=== PATIENT | female | born 1950 | race Caucasian/White ===

== ENCOUNTER → 2017-04-17 | Outpatient (CLI) | payer BC ==
--- NOTE | 2017-04-18 11:01 | MM ---
Reason for exam: screening (asymptomatic). Last mammogram was performed 1 year and 2 months ago. History: Patient is postmenopausal. Family history of breast cancer in mother at age 87. Physical Findings: A clinical breast exam by your physician is recommended on an annual basis and results should be correlated with mammographic findings. MG 3D Screening Mammo W/Cad Bilateral CC and MLO view(s) were taken. Prior study comparison: February 17, 2016, bilateral MG screening mammo w CAD. December 17, 2014, bilateral MG screening mammo w CAD. December 13, 2013, bilateral digital screening mammo w/CAD. Finding: There are typically benign vascular, round calcifications in both breasts. There is no discrete abnormality. ASSESSMENT: Benign, BI-RAD 2 RECOMMENDATION: Routine screening mammogram of both breasts in 1 year.
== END | disposition home or self-care (01) ==
LOC: RADMAMWWP 16:42
PROVIDERS: ATTEND Obstetrics & Gynecology
DX: Z12.31 Encounter for screening mammogram for malignant neoplasm of breast (principal)
CPT/HCPCS: 77063; G0202

== ENCOUNTER → 2018-07-04 | Outpatient (CLI) | payer BC ==
--- NOTE | 2018-07-06 09:15 | MM ---
Reason for exam: screening (asymptomatic). Last mammogram was performed 1 year and 3 months ago. History: Patient is postmenopausal. Family history of breast cancer in mother at age 87. Physical Findings: A clinical breast exam by your physician is recommended on an annual basis and results should be correlated with mammographic findings. MG 3D Screening Mammo W/Cad Bilateral CC and MLO view(s) were taken. Prior study comparison: April 17, 2017, bilateral MG 3d screening mammo w/cad. February 17, 2016, bilateral MG screening mammo w CAD. There are scattered fibroglandular densities. No significant changes when compared with prior studies. ASSESSMENT: Benign, BI-RAD 2 RECOMMENDATION: Routine screening mammogram of both breasts in 1 year.
== END | disposition home or self-care (01) ==
LOC: RADMAMWWP 08:06
PROVIDERS: ATTEND Internal Medicine
DX: Z12.31 Encounter for screening mammogram for malignant neoplasm of breast (principal); Z68.24 Body mass index [BMI] 24.0-24.9, adult
CPT/HCPCS: 77063; 77067

== ENCOUNTER → 2019-08-20 | Outpatient (CLI) | payer MEDICARE ==
--- NOTE | 2019-08-23 10:23 | MM ---
Reason for exam: screening (asymptomatic). Last mammogram was performed 1 year and 2 months ago. History: Patient is postmenopausal. Family history of breast cancer in mother at age 87. Physical Findings: A clinical breast exam by your physician is recommended on an annual basis and results should be correlated with mammographic findings. MG 3D Screening Mammo W/Cad Bilateral CC and MLO view(s) were taken. Prior study comparison: July 04, 2018, bilateral MG 3d screening mammo w/cad. April 17, 2017, bilateral MG 3d screening mammo w/cad. There are scattered fibroglandular densities. No significant changes when compared with prior studies. ASSESSMENT: Benign, BI-RAD 2 RECOMMENDATION: Routine screening mammogram of both breasts in 1 year.
== END | disposition home or self-care (01) ==
LOC: RADMAMWWP 13:51
PROVIDERS: ATTEND Obstetrics & Gynecology
DX: Z12.31 Encounter for screening mammogram for malignant neoplasm of breast (principal)
CPT/HCPCS: 77063; 77067

== ENCOUNTER 2019-11-11 09:19 | Day surgery (SDC) | payer MEDICARE ==
[2019-11-04 11:21] VITALS: BMI 24.3
[~2019-11-11 09:19] MED LIST: LACTATED RINGERS 1,000 ML IV SCH
[2019-11-11 09:58] VITALS: TEMP 97.3
[2019-11-11] MEDS ORDERED: LIDOCAINE 1% 20 ML VIAL (10MG/ML) FOR IV START INTRADERMA ONE (10:07)
[2019-11-11] MEDS ORDERED: PROPOFOL 10 MG/ML 20 ML VIAL IV ONE (10:33)
[2019-11-11] MEDS ORDERED: fentaNYL (PF) 50 MCG/ML 2 ML AMP ONE (10:33)
[2019-11-11] MEDS ORDERED: MIDAZOLAM 2 MG/2 ML VIAL ONE (10:33)
--- NOTE | 2019-11-11 11:19 | P.PCN ---
Date of Procedure: 11/11/19 Description of Procedure: BRIEF HISTORY: Patient is a 69-year-old female who presents for outpatient colonoscopy for a history of colon polyps. Last colonoscopy 5 years ago with findings of diverticulosis, polyps on prior colonoscopies. Patient does note change in bowel habits which she feels has been occurring since her cholecystectomy. PROCEDURE PERFORMED: Colonoscopy with polypectomy and biopsy. PREOPERATIVE DIAGNOSIS: Personal history of colon polyps, last colonoscopy 5 years ago. ESTIMATED BLOOD LOSS: Minimal. IV sedation per Anesthesia. PROCEDURE: After informed consent was obtained, the patient, was brought into the endoscopy unit. IV sedation was administered by Anesthesia under continuous monitoring. Digital rectal examination was normal. Initially the pediatric flexible video colonoscope was then inserted in the rectum, gradually advanced into the cecum without any difficulty. Careful examination was performed as the scope was gradually being withdrawn. Ileocecal valve and the appendiceal orifice were visualized and appeared normal. The terminal ileum was intubated and appeared normal with biopsies taken. Prep was excellent. Mucosa of the cecum, ascending colon, transverse colon, descending colon, sigmoid colon, and rectum appeared normal. Diminutive 2 mm ascending colon polyp removed with cold forcep polypectomy. Diminutive 1 mm rectal polyp removed with cold forcep polypectomy. Random biopsies taken of the right colon and left colon in the setting of altered bowel function. Numerous small and large mouth diverticula throughout the colon with large clustering in the sigmoid colon which was somewhat fixed. Retroflexion was performed in the rectum and no lesions were seen, low-grade internal hemorrhoids noted. The patient tolerated the procedure well. IMPRESSION: Moderate pandiverticulosis, with a somewhat fixed sigmoid colon. 2 diminutive polyps removed from the ascending colon and rectum with cold forceps. Random biopsies of the terminal ileum, right and left colon in the setting of altered bowel function. RECOMMENDATIONS: Findings of this examination were discussed with the patient in her family. Okay to resume diet. Okay to resume medications. Recommend repeat colonoscopy in 5 years for personal history of colon polyps.
[2019-11-11 11:25] VITALS: BP 127/79; PULSE 86; RESP 17
== END 2019-11-11 12:06 | disposition home or self-care (01) ==
LOC: ORWHC2ENDO 09:19
PROVIDERS: ATTEND Internal Medicine
DX: K63.5 Polyp of colon (principal); D12.2 Benign neoplasm of ascending colon; D12.3 Benign neoplasm of transverse colon; K62.1 Rectal polyp; K57.30 Diverticulosis of large intestine without perforation or abscess without bleeding; K64.8 Other hemorrhoids; I10 Essential (primary) hypertension; K21.9 Gastro-esophageal reflux disease without esophagitis; Z86.010 Personal history of colon polyps; Z90.49 Acquired absence of other specified parts of digestive tract; Z79.899 Other long term (current) drug therapy
CPT/HCPCS: 88305; 45380; J2250; J3010; J2704

== ENCOUNTER → 2020-01-16 | Outpatient (CLI) | payer MEDICARE ==
--- NOTE | 2020-01-16 11:26 | ECHOF ---
Referral Reason:R00.2 Palpitations R94.31 abn ekg MEASUREMENTS -------- HEIGHT: 175.3 cm WEIGHT: 77.1 kg BP: RVIDd: 3.7 cm (< 3.3) IVSd: 1.3 cm (0.6 - 1.1) LVIDd: 4.0 cm (3.9 - 5.3) LVPWd: 1.2 cm (0.6 - 1.1) IVSs: 1.9 cm LVIDs: 2.0 cm LVPWs: 1.5 cm LA Diam: 2.9 cm (2.7 - 3.8) LAESV Index (A-L): 12.68 ml/m Ao Diam: 3.1 cm (2.0 - 3.7) AV Cusp: 2.0 cm (1.5 - 2.6) MV EXCURSION: 17.007 mm (> 18.000) MV EF SLOPE: 22 mm/s (70 - 150) EPSS: 0.2 cm MV E Carlton: 0.73 m/s MV DecT: 286 ms MV A Carlton: 0.91 m/s MV E/A Ratio: 0.81 AR PHT: 1060 ms RAP: 5.00 mmHg RVSP: 29.01 mmHg FINDINGS -------- Sinus rhythm. This was a technically good study. The left ventricular size is normal. There is mild concentric left ventricular hypertrophy. Overa ll left ventricular systolic function is normal with, an EF between 60 - 65 %. The right ventricle is mild to moderately enlarged. Normal LA size by volume 22+/-6 ml/m2. The right atrium is normal in size. Interatrial and interventricular septum intact. Aortic valve is trileaflet and is mildly thickened. The mitral valve leaflets are mildly thickened. Mild mitral annular calcification present. Mild t hickening of the anterior mitral valve leaflet. There is mild thickening of the posterior mitral va lve leaflet. Mild tricuspid regurgitation present. Right ventricular systolic pressure is normal at < 35 mmHg. There is no pulmonic regurgitation present. The aortic root size is normal. Normal inferior vena cava with normal inspiratory collapse consistent with estimated right atrial pre ssure of 5 mmHg. There is no pericardial effusion. CONCLUSIONS -------- 1. Sinus rhythm. 2. This was a technically good study. 3. The left ventricular size is normal. 4. There is mild concentric left ventricular hypertrophy. 5. Overall left ventricular systolic function is normal with, an EF between 60 - 65 %. 6. The right ventricle is mild to moderately enlarged. 7. Normal LA size by volume 22+/-6 ml/m2. 8. The right atrium is normal in size. 9. Interatrial and interventricular septum intact. 10. Aortic valve is trileaflet and is mildly thickened. 11. The mitral valve leaflets are mildly thickened. 12. Mild mitral annular calcification present. 13. Mild thickening of the anterior mitral valve leaflet. 14. There is mild thickening of the posterior mitral valve leaflet. 15. Mild tricuspid regurgitation present. 16. Right ventricular systolic pressure is normal at < 35 mmHg. 17. There is no pulmonic regurgitation present. 18. The aortic root size is normal. 19. Normal inferior vena cava with normal inspiratory collapse consistent with estimated right atrial pressure of 5 mmHg. 20. There is no pericardial effusion. [employer] DESIGNER: Zahida Garcia RDCS
--- NOTE | 2020-01-16 12:29 | ECHOS ---
STRESS ECHOCARDIOGRAM INDICATIONS: Hypertension. MEDICATIONS: Amitriptyline, atorvastatin, Ramipril. BASELINE HEART RATE: 101 BASELINE BLOOD PRESSURE: 160/80 MAXIMUM HEART RATE: 157 MAXIMUM BLOOD PRESSURE: 181/83 85% MPHR: 128 100% MPHR: 151 METS: 11.1 MAXIMUM STAGE REACHED: IV TOTAL EXERCISE TIME: 9:33 CLINICAL INFORMATION: Baseline EKG shows sinus rhythm, normal axis, normal intervals. Patient exercised on Dionisio protocol for a total of 9.5 minutes achieving 11 METS, 85% of predicted maximal heart rate without chest pain or diagnostic ST-segment depression. Baseline echo shows normal left ventricular size, wall motion, systolic function. Postexercise, there is normal hyperdynamic response of all segments of myocardium noted. CONCLUSION: 1. Good exercise tolerance. 2. Negative stress test by EKG criteria. 3. Negative stress echo. DINESH / JOVANAN: [id number] /
--- NOTE | 2020-02-22 09:13 | EM ---
EVENT MONITOR Patient was monitored between January 15 and February 10, 2020. The rhythm strip revealed sinus mechanism with single PVCs. There was one episode of paroxysmal atrial tachycardia noted on January 25 of 8 complexes. No pauses were noted. DINESH / IJN: [id number] /
== END | disposition home or self-care (01) ==
LOC: RADNMMAIN 09:06
PROVIDERS: ATTEND Internal Medicine
DX: I08.1 Rheumatic disorders of both mitral and tricuspid valves (principal); R00.2 Palpitations
CPT/HCPCS: 93270; 93306; 93351

== ENCOUNTER → 2020-08-21 | Outpatient (CLI) | payer MEDICARE ==
--- NOTE | 2020-08-24 09:35 | MM ---
Reason for exam: screening (asymptomatic). Last mammogram was performed 1 year ago. History: Patient is postmenopausal. Family history of breast cancer in mother at age 87. Physical Findings: A clinical breast exam by your physician is recommended on an annual basis and results should be correlated with mammographic findings. MG 3D Screening Mammo W/Cad Bilateral CC and MLO view(s) were taken. Prior study comparison: August 20, 2019, bilateral MG 3d screening mammo w/cad. July 04, 2018, bilateral MG 3d screening mammo w/cad. The breast tissue is heterogeneously dense. This may lower the sensitivity of mammography. Benign appearing bilateral calcifications. No significant changes when compared with prior studies. ASSESSMENT: Benign, BI-RAD 2 RECOMMENDATION: Routine screening mammogram of both breasts in 1 year.
== END | disposition home or self-care (01) ==
LOC: RADMAMWWP 10:55
PROVIDERS: ATTEND Obstetrics & Gynecology
DX: Z12.31 Encounter for screening mammogram for malignant neoplasm of breast (principal)
CPT/HCPCS: 77063; 77067

== ENCOUNTER → 2020-11-23 | Outpatient (CLI) | payer MEDICARE ==
--- NOTE | 2020-11-23 18:02 | US ---
EXAMINATION TYPE: US transvaginal DATE OF EXAM: 11/23/2020 COMPARISON: NONE CLINICAL HISTORY: 70-year-old female N95.0 POST MENOPAUSAL BLEEDING. TECHNIQUE: Transvaginal exam only per ordering physician. Date of LMP: 20 years ago FINDINGS: EXAM MEASUREMENTS: Uterus: 6.2 x 2.6 x 3.6 cm Endometrial Stripe: 3.7 mm Right Ovary: not seen Left Ovary: not seen 1. Uterus: anteverted 2. Endometrium: wnl 3. Right Ovary: not seen due to overlying bowel 4. Left Ovary: not seen due to overlying bowel 5. Bilateral Adnexa: wnl 6. Posterior cul-de-sac: wnl IMPRESSION: Thin endometrial stripe measuring 3.7 mm. Neither ovary could be visualized.
== END | disposition home or self-care (01) ==
LOC: RADUSWWP 16:05
PROVIDERS: ATTEND Obstetrics & Gynecology
DX: R93.89 Abnormal findings on diagnostic imaging of other specified body structures (principal); N95.0 Postmenopausal bleeding
CPT/HCPCS: 76830

== ENCOUNTER → 2021-08-25 | Outpatient (CLI) | payer MEDICARE ==
--- NOTE | 2021-08-26 07:46 | BD ---
EXAMINATION TYPE: Axial Bone Density DATE OF EXAM: 08/25/2021 COMPARISON: Prior DEXA bone scan 2015 CLINICAL HISTORY: Postmenopausal female Height: 5 FT 8 3/4 IN Weight: 172 FRAX RISK QUESTIONS: Alcohol (3 or more units per day): NO Family History (Parent hip fracture): YES Glucocorticoids (More than 3mos): NO (Ex: prednisone, prednisolone, methylprednisolone, dexamethasone, and hydrocortisone). History of Fracture in Adulthood: NO Secondary Osteoporosis: 1. Type 1 Diabetes: NO 2. Hyperthyroidism: NO 3. Menopause before 45: NO 4. Malnutrition: NO 5. Chronic liver disease: NO Rheumatoid Arthritis: NO Current Tobacco Use: NO RISK FACTORS HISTORY OF: Surgery to Spine/Hip(right/left)/Wrist (right/left): NO Family History of Osteoporosis: NO Active: YES Diet low in dairy products/other sources of calcium: NO Postmenopausal woman: EAARLY 50'S Take estrogen and/or progesterone medications: NO Lost more than 2 inches in height since high school: NO MEDICATIONS: Additional Medications: BLOOD PRESSURE MEDS, ZOCOR, H2O PILL Additional History: EXAM MEASUREMENTS: Bone mineral densitometry was performed using the [facility]. Bone mineral density as measured about the Lumbar spine is: ----- L1-L4(G/cm2): 1.324 T Score Values are as follows: ----- L2: 2.2 ----- L3: 0.5 ----- L4: 1.4 ----- L1-L4: 1.2 Bone mineral density has: INCREASED 3.9 % since study of: 2015 Bone mineral density about the R hip (g/cm2): 0.956 Bone mineral density about the L hip (g/cm2): 0.933 T Score values are as follows: -----R Neck: -0.6 -----L Neck: -0.8 -----R Total: -0.8 -----L Total: -1.4 Bone mineral density has: DECREASED -6.7 % since study of: 2016 IMPRESSION: Normal (Values between +1 and -1 indicate normal bone mass). Consider repeating this study in 5 year s or sooner if there is some new clinical indication. NOTE: T-SCORE=SD OF THE YOUNG ADULT MEAN.
--- NOTE | 2021-08-26 15:05 | MM ---
Reason for exam: screening (asymptomatic). Last mammogram was performed 1 year ago. History: Patient is postmenopausal. Family history of breast cancer in mother at age 87. Physical Findings: A clinical breast exam by your physician is recommended on an annual basis and results should be correlated with mammographic findings. MG 3D Screening Mammo W/Cad Bilateral CC and MLO view(s) were taken. Prior study comparison: August 21, 2020, bilateral MG 3d screening mammo w/cad. August 20, 2019, bilateral MG 3d screening mammo w/cad. July 04, 2018, bilateral MG 3d screening mammo w/cad. The breast tissue is heterogeneously dense. This may lower the sensitivity of mammography. There are benign appearing vascular calcifications bilaterally. There is no discrete abnormality. ASSESSMENT: Benign, BI-RAD 2 RECOMMENDATION: Routine screening mammogram of both breasts in 1 year.
== END | disposition home or self-care (01) ==
LOC: RADBDWWP 14:59
PROVIDERS: ATTEND Obstetrics & Gynecology
DX: Z12.31 Encounter for screening mammogram for malignant neoplasm of breast (principal); Z80.3 Family history of malignant neoplasm of breast; M85.852 Other specified disorders of bone density and structure, left thigh; Z78.0 Asymptomatic menopausal state
CPT/HCPCS: 77063; 77067; 77080

== ENCOUNTER → 2022-08-31 | Outpatient (CLI) | payer MEDICARE ==
--- NOTE | 2022-09-01 08:54 | MM ---
Reason for Exam: Screening (asymptomatic). Last screening mammogram was performed 12 month(s) ago. Patient History: Menarche at age 13. First Full-Term at age 17. Postmenopausal. Mother had breast cancer, age 87. Risk Values: Peace 5 year model risk: 3.3%. NCI Lifetime model risk: 8.4%. Prior Study Comparison: 08/20/2019 Bilateral Screening Mammogram, [facility]. 08/21/2020 Bilateral Screening Mammogram, [facility]. 08/25/2021 Bilateral Screening Mammogram, [facility]. Tissue Density: The breast tissue is heterogeneously dense. This may lower the sensitivity of mammography. Findings: Analyzed By CAD. Benign-appearing vascular calcifications bilaterally is redemonstrated. Benign Bilateral axillary lymph nodes are again seen. There is no suspicious group of microcalcifications or new suspicious mass in either breast. Overall Assessment: Benign, BI-RAD 2 Management: Screening Mammogram of both breasts in 1 year. A clinical breast exam by your physician is recommended on an annual basis and results should be correlated with mammographic findings. Electronically signed and approved by: Steve Constantino M.D.
--- NOTE | 2022-09-01 08:54 | MM ---
Reason for Exam: Screening (asymptomatic). Last screening mammogram was performed 12 month(s) ago. Patient History: Menarche at age 13. First Full-Term at age 17. Postmenopausal. Mother had breast cancer, age 87. Risk Values: Peace 5 year model risk: 3.3%. NCI Lifetime model risk: 8.4%. Prior Study Comparison: 08/20/2019 Bilateral Screening Mammogram, [facility]. 08/21/2020 Bilateral Screening Mammogram, [facility]. 08/25/2021 Bilateral Screening Mammogram, [facility]. Tissue Density: The breast tissue is heterogeneously dense. This may lower the sensitivity of mammography. Findings: Analyzed By CAD. Benign-appearing vascular calcifications bilaterally is redemonstrated. Benign Bilateral axillary lymph nodes are again seen. There is no suspicious group of microcalcifications or new suspicious mass in either breast. Overall Assessment: Benign, BI-RAD 2 Management: Screening Mammogram of both breasts in 1 year. A clinical breast exam by your physician is recommended on an annual basis and results should be correlated with mammographic findings. Electronically signed and approved by: Steve Constantino M.D.
== END | disposition home or self-care (01) ==
LOC: RADMAMWWP 09:41
PROVIDERS: ATTEND Obstetrics & Gynecology
DX: Z12.31 Encounter for screening mammogram for malignant neoplasm of breast (principal); Z78.0 Asymptomatic menopausal state; Z80.3 Family history of malignant neoplasm of breast
CPT/HCPCS: 77063; 77067

== ENCOUNTER → 2023-02-27 | Outpatient (CLI) | payer MEDICARE ==
--- NOTE | 2023-02-28 21:35 | NM ---
EXAMINATION TYPE: NM bone scan whole body DATE OF EXAM: 02/27/2023 COMPARISON: Pelvic radiograph 02/21/2023, lumbosacral spine radiograph 02/21/2023 HISTORY: M47.816 Delayed whole-body scanning was performed following the injection of 22 mCi Tc 99m MDP. Images acqui red 3 hours post injection. FINDINGS: Increased radiotracer uptake within the L2 vertebral body corresponding to suspected compression frac ture. There is focal uptake demonstrated within the right aspect of the T12 . Additionally there is i ncreased uptake within the bilateral sacral regions and transversely across the sacrum consistent wit h the Honda sign which is associated with sacral insufficiency fracture. Increased radiotracer uptake within the bilateral shoulders, elbows, and sternoclavicular region cons istent with degenerative changes. Physiologic radiotracer uptake is demonstrated within the kidneys a nd urinary bladder. IMPRESSION: 1. Focal radiotracer uptake within the L2 vertebral body consistent with acute/subacute compression fracture on plain film. 2. Focal radiotracer uptake within the right aspect of the T12 vertebral body which may represent a compression fracture or degenerative change. This could be further evaluated with plain film. 3. Honda sign involving the sacrum consistent with sacral insufficiency fractures.
== END | disposition home or self-care (01) ==
LOC: RADNMMAIN 10:27
PROVIDERS: ATTEND Physical Medicine & Rehabilitation
DX: S32.020A Wedge compression fracture of second lumbar vertebra, initial encounter for closed fracture (principal); M47.816 Spondylosis without myelopathy or radiculopathy, lumbar region
CPT/HCPCS: 78306; A9503

== ENCOUNTER → 2023-09-18 | Outpatient (CLI) | payer MEDICARE ==
--- NOTE | 2023-09-19 18:43 | MM ---
Reason for Exam: Screening (asymptomatic). Last mammogram was performed 1 year(s) and 1 month(s) ago. Patient History: Menarche at age 13. First Full-Term at age 17. Postmenopausal. Mother had breast cancer, age 87. Risk Values: Peace 5 year model risk: 3.3%. NCI Lifetime model risk: 7.9%. Prior Study Comparison: 08/21/2020 Bilateral Screening Mammogram, [facility]. 08/25/2021 Bilateral Screening Mammogram, [facility]. 08/31/2022 Bilateral MG 3D screening mammo w/cad, [facility]. Tissue Density: There are scattered fibroglandular densities. Findings: Analyzed By CAD. Benign bilateral vascular calcifications. There is new nodular asymmetric density superiorly on the right MLO view anterior to middle depth for which further evaluation is recommended. Otherwise, no significant change. Overall Assessment: Incomplete: need additional imaging evaluation, BI-RAD 0 Management: Special View Mammogram of the right breast. Diagnostic Breast Ultrasound of the right breast. Additional views to include spot 3-D MLO and 3-D lateral views. Targeted right breast ultrasound of any persistent abnormality. [facility] will attempt to contact patient to return for supplemental views and ultrasound if indicated. Electronically signed and approved by: Thanh Vasquez M.D. Radiologist
== END | disposition home or self-care (01) ==
LOC: RADMAMWWP 16:09
PROVIDERS: ATTEND Obstetrics & Gynecology
DX: Z12.31 Encounter for screening mammogram for malignant neoplasm of breast (principal); Z78.0 Asymptomatic menopausal state; Z80.3 Family history of malignant neoplasm of breast
CPT/HCPCS: 77063; 77067

== ENCOUNTER → 2023-09-28 | Outpatient (CLI) | payer MEDICARE ==
--- NOTE | 2023-09-28 08:40 | MM ---
Reason for Exam: Additional evaluation requested from abnormal screening. Last screening mammogram was performed less than 1 month ago. Patient History: Menarche at age 13. First Full-Term at age 17. Postmenopausal. Mother had breast cancer, age 87. Risk Values: Peace 5 year model risk: 3.3%. NCI Lifetime model risk: 7.9%. Tissue Density: Right: The breast tissue is heterogeneously dense. This may lower the sensitivity of mammography. Findings: Analyzed By CAD. The nodular density appears to be partially visualized on compression view. This is approximately 4 mm in size 6.5 cm from the nipple in the middle portion 12:00 position. Additional workup with ultrasound is recommended. Overall Assessment: Incomplete: need additional imaging evaluation, BI-RAD 0 Management: Diagnostic Breast Ultrasound of the right breast. A negative mammogram report should not preclude additional follow up of suspicious palpable abnormalities. Patient should continue monthly self breast exam. A clinical breast exam by your physician is recommended on an annual basis and results should be correlated with mammographic findings. Electronically signed and approved by: Hasmukh Ray D.O. Radiologis
--- NOTE | 2023-09-28 10:10 | USB ---
Reason for Exam: Additional evaluation requested from abnormal screening. Patient History: Menarche at age 13. First Full-Term at age 17. Postmenopausal. Mother had breast cancer, age 87. Risk Values: Peace 5 year model risk: 3.3%. NCI Lifetime model risk: 7.9%. Technique: Method: Targeted. Prior Study Comparison: 08/22/1998 Screening Mammogram, Unknown. 08/25/2021 Bilateral Screening Mammogram, [facility]. 08/31/2022 Bilateral MG 3D screening mammo w/cad, [facility]. 09/18/2023 Bilateral MG 3D screening mammo w/cad, [facility]. Findings: The upper section of the breast of the right breast, the axilla of the right breast and the retroareolar of the right breast were scanned. At the 10:00 position 6 cm from the nipple there is a cyst measuring 0.5 x 0.6 x 0.6 cm. It is unclear if this correlates with the mammogram. Follow-up mammogram and ultrasound 6 recommend reevaluation. Overall Assessment: Probably benign, BI-RAD 3 Management: Diagnostic Mammogram of the right breast in 6 months. Diagnostic Breast Ultrasound of the right breast in 6 months. A clinical breast exam by your physician is recommended on an annual basis and results should be correlated with mammographic findings. This exam should not preclude additional follow-up of suspicious palpable abnormalities. Results were given to the patient verbally at the time of exam. Electronically signed and approved by: Hasmukh Ray D.O. Radiologis
== END | disposition home or self-care (01) ==
LOC: RADMAMWWP 08:17
PROVIDERS: ATTEND Obstetrics & Gynecology
DX: R92.331 Mammographic heterogeneous density, right breast (principal); Z78.0 Asymptomatic menopausal state; Z80.3 Family history of malignant neoplasm of breast
CPT/HCPCS: 77065; 76642; G0279; 77061

== ENCOUNTER 2023-10-16 11:35 | Day surgery (SDC) | payer MEDICARE ==
[2023-10-16] MEDS ORDERED: SODIUM CHLORIDE 0.9% 500 ML 500 ML IV ONE (12:17)
[2023-10-16 12:24] VITALS: RESP 18; TEMP 98.2
[2023-10-16] MEDS ORDERED: fentaNYL (PF) 50 MCG/ML 2 ML AMP ONE (12:48)
[2023-10-16] MEDS ORDERED: MIDAZOLAM 2 MG/2 ML VIAL IVP ONE ×2 (12:57→13:04)
[2023-10-16] MEDS ORDERED: fentaNYL (PF) 50 MCG/ML 2 ML AMP IVP ONE (13:00)
[2023-10-16 14:22] VITALS: PULSE 84
[2023-10-16 14:47] VITALS: BP 130/65
--- NOTE | 2023-10-16 15:06 | P.TEE ---
Date of Procedure: 10/16/23 Description of Procedure(s): Procedure performed: 1. Transesophageal Echocardiogram with color flow doppler, pulsed wave doppler and continuous wave doppler 2. Moderate conscious sedation. Sedation time 28 mins. 3. Bubble Study Indications: Suspected severe MR and Aortic regurgitation Consent: I have discussed the risks, benefits and alternative therapies for the above-mentioned procedure. The patient has indicated understanding and acceptance of the risks of the procedure. Signed consent was obtained and was placed in the paper chart. Procedural Steps: Timeout was performed in usual fashion. Patient's heart rate, blood pressure, oxygen saturation and ECG were monitored. Benzocaine was sprayed liberally in the back of the throat. Bite block was placed between the jaw. 3 mg of Versed and 75 mcg of Fentanyl were administered intravenously. After achiev ing appropriate moderate conscious sedation, BRUNO probe was advanced without difficulty and without any immediate complications to the esophagus. BRUNO study was performed with color flow doppler, pulsed wave doppler and continuous wave doppler. Agitated saline bubbles were injected to assess for any intra-atrial shunt. The probe was then removed. Patient tolerated the procedure well. Patient was transferred to the post procedure area in stable and satisfactory condition. Throughout the procedure patient's heart rate, blood pressure, oxygen saturation and ECG were monitored. Total sedation time 28 mins. Complications: none FINDINGS Left Atrium: Normal Left atrial size. No evidence of mass or thrombus seen. Antegrade systolic showing pulmonary vein. Left Atrial Appendage: No evidence of thrombus or mass seen in RAQUEL Inter atrial septum: Small PFO with [id number] shunt on bubble study Left Ventricle: Normal global LV size and systolic function Right Atrium: Normal overall RV size Right Ventricle: Normal global RV size and systolic function Aortic Valve: Trileaflet. Mild thickening of leaflet tips. Mild central regurgitation. PISA radius 0.5 cm with aliasing velocity of 38 cm/s, peak AR velocity 375 cm/sec. Orific area 0.2 cm2, which puts it at mild grade. 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 Mild prolapse of anterior and posterior mitral leaflet. MR Vmax 5 82 cm/s, MR VTI 65 cm, alisaing velocity 38 cm/s, PISA 0.5 cm. EROA 0.1 cm. regurg volume 10 cm. No systolic reversal in pulmonic vein. Mild to moderate aortic regurgitation. MR is early systolic last less than 50% of systole. Pulmonic Valve: Not well visualized. Tricuspid Valve: Structurally normal. Ascending aorta, Aortic root and Aortic arch: Ascending aorta measuring at 3.5 cm Descending aorta: Mild intimal thickening. 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 Mild early systolic systolic MR. Primary MR due to mild prolapse of anterior and posterior mitral leaflet. No reversal of systolic flow in pulmonic vein PFO with [id number] shunting on bubble study
== END 2023-10-16 14:41 | disposition home or self-care (01) ==
LOC: CATHCVL 11:35
PROVIDERS: ATTEND Student in an Organized Health Care Education/Training Program
DX: I08.0 Rheumatic disorders of both mitral and aortic valves (principal); I10 Essential (primary) hypertension; E78.5 Hyperlipidemia, unspecified; Z79.899 Other long term (current) drug therapy
CPT/HCPCS: 93312; 93320; 93325; 99152; 99153; J2250; J3010

== ENCOUNTER → 2024-04-02 | Outpatient (CLI) | payer MEDICARE ==
--- NOTE | 2024-04-02 14:17 | MM ---
Reason for Exam: Follow-up at short interval from prior study. Last screening mammogram was performed 6 month(s) ago. Patient History: Menarche at age 13. First Full-Term at age 17. Postmenopausal. Mother had breast cancer, age 87. Risk Values: Peace 5 year model risk: 3.3%. NCI Lifetime model risk: 7.9%. Prior Study Comparison: 08/31/2022 Bilateral MG 3D screening mammo w/cad, [facility]. 09/18/2023 Bilateral MG 3D screening mammo w/cad, [facility]. 09/28/2023 Right MG 3D work up w/cad RT, [facility]. Tissue Density: Right: The breasts are heterogeneously dense, which may obscure small masses. Findings: Analyzed By CAD. Pattern appears stable. Benign vascular calcifications present. Density within the upper right medial lateral oblique view is persistent. This measures 0.4 cm is located 7 cm from the nipple upper middle breast approximately 10:00 position. Overall Assessment: Incomplete: need additional imaging evaluation, BI-RAD 0 Management: Diagnostic Breast Ultrasound of the right breast. A negative mammogram report should not preclude additional follow up of suspicious palpable abnormalities. Patient should continue monthly self breast exam. A clinical breast exam by your physician is recommended on an annual basis and results should be correlated with mammographic findings. Note on Peace scores and lifetime risk: 1. A Peace score greater than 3% is considered moderate risk. If this is the case, consider specialist referral to assess eligibility for a risk reducing agent. 2. If overall lifetime risk for the development of breast cancer is 20% or higher, the patient may qualify for future screening with alternating mammogram and breast MRI. Electronically signed and approved by: Hasmukh Ray D.O. Radiologis
--- NOTE | 2024-04-02 15:09 | USB ---
Reason for Exam: Follow-up at short interval from prior study. Patient History: Menarche at age 13. First Full-Term at age 17. Postmenopausal. Mother had breast cancer, age 87. Risk Values: Peace 5 year model risk: 3.3%. NCI Lifetime model risk: 7.9%. Technique: Method: Targeted. Prior Study Comparison: 08/31/2022 Bilateral MG 3D screening mammo w/cad, [facility]. 09/18/2023 Bilateral MG 3D screening mammo w/cad, [facility]. 09/28/2023 Right MG 3D work up w/cad RT, [facility]. Findings: The upper outer quadrant of the right breast, the axilla of the right breast and the retroareolar of the right breast were scanned. There is a hypoechoic colic area measuring 0.6 x 0.7 x 0.6 cm this appears to be adjacent to a duct is located 10:00 position 6 cm in the nipple. This would correlate with the mammographic findings. This is compared to prior ultrasound of 09/28/2023. Finding appears stable. Overall Assessment: Probably benign, BI-RAD 3 Management: Diagnostic Mammogram of both breasts in 6 months. A clinical breast exam by your physician is recommended on an annual basis and results should be correlated with mammographic findings. This exam should not preclude additional follow-up of suspicious palpable abnormalities. Results were given to the patient verbally at the time of exam. Electronically signed and approved by: Hasmukh Ray D.O. Radiologis
== END | disposition home or self-care (01) ==
LOC: RADMAMWWP 13:40
PROVIDERS: ATTEND Student in an Organized Health Care Education/Training Program
DX: R92.331 Mammographic heterogeneous density, right breast (principal); Z78.0 Asymptomatic menopausal state; Z80.3 Family history of malignant neoplasm of breast
CPT/HCPCS: 77065; 76642; G0279; 77061

== ENCOUNTER → 2024-07-04 | Outpatient (CLI) | payer MEDICARE ==
--- NOTE | 2024-07-23 10:10 | MR ---
EXAMINATION TYPE: MR lumbar spine wo con DATE OF EXAM: 07/04/2024 COMPARISON: 02/21/2023 plain film HISTORY: Low back pain left lower extremity radiculopathy CONTRAST: 0 mL intravenous Gadavist. TECHNIQUE: Multiplanar, multisequence images of the lumbar spine were acquired. FINDINGS: L5-S1: There is loss of disc height at this level. No focal disc herniation is evident. No spinal can al stenosis is present. Neural foramen appear patent. L4-L5: There is a grade 1 spondylolisthesis with disc uncovering. Facet hypertrophy is present. Some mild canal narrowing may be present. Neural foramen are patent. L3-L4: Broad-based disc bulge is moderate anterior thecal sac compression. No spinal canal stenosis p resent. Facet hypertrophy is posterior lateral thecal sac compression. Neural foramen are patent. L2-L3: No focal disc herniation or significant disc bulge. No AP spinal canal stenosis. Facet hypertr ophy is posterior lateral thecal sac compression. Neural foramen are patent. Some mild narrowing may be present on the left. No nerve root impingement is identified. L1-L2: Broad-based disc bulge is present. Facet hypertrophy and ligamentum flavum laxity have detective ior lateral thecal sac compression. No AP spinal canal stenosis present. Some mild left foraminal violeta rowing is present. T12-L1: No significant disc bulge or disc herniation. No spinal canal stenosis. Some facet hypertrop hy is present. No neural foraminal narrowing evident. IMPRESSION: 1. Grade 1 spondylolisthesis L4 anterior to L5. Disc uncovering and facet hypertrophy contributing to some mild spinal canal narrowing. 2. Some broadbase disc bulge present at L3-4 and L1-2 without spinal canal stenosis. 3. Some mild foraminal narrowing appears to be present on the left L1-2. Correlate with radicular sym ptoms.
== END | disposition home or self-care (01) ==
LOC: RADMRIMAIN 08:40
PROVIDERS: ATTEND Orthopaedic Surgery Orthopaedic Surgery of the Spine
DX: M51.36 Other intervertebral disc degeneration, lumbar region (principal); M48.062 Spinal stenosis, lumbar region with neurogenic claudication; M43.16 Spondylolisthesis, lumbar region; M48.061 Spinal stenosis, lumbar region without neurogenic claudication
CPT/HCPCS: 72148

== ENCOUNTER → 2024-12-09 | Outpatient (CLI) | payer MEDICARE | END | disposition home or self-care (01) | LOC: LABPAT 13:36 | PROVIDERS: ATTEND Orthopaedic Surgery | DX: Z01.812 Encounter for preprocedural laboratory examination (principal); M16.12 Unilateral primary osteoarthritis, left hip; Z22.322 Carrier or suspected carrier of Methicillin resistant Staphylococcus aureus | CPT/HCPCS: 86850; 86900; 86901; 87070 ==

== ENCOUNTER 2024-12-18 11:04 | Day surgery (SDC) | payer MEDICARE ==
--- NOTE | 2024-12-16 10:20 | P.HPOR ---
History of Present Illness H&P Date: 12/16/24 Chief Complaint: Left hip pain The patient is a 74-year-old female who presents with progressive left hip pain for the past 2 years. She is having pain with weightbearing activities in the groin and thigh. She also notes stiffness. She does use a cane. She has tried medications without much relief. She notes daily pain that limits her normal function and activities. Review of Systems Per HPI Past Medical History Past Medical History: GERD/Reflux, Hyperlipidemia, Hypertension Additional Past Medical History / Comment(s): HX OF COLON POLYPS, IBS WITH DIARRHEA/CONSTIPATION , PROLAPSED BLADDER. History of Any Multi-Drug Resistant Organisms: None Reported Past Surgical History: Back Surgery, Cholecystectomy Additional Past Surgical History / Comment(s): lumbar spinal fusion 2023 Past Anesthesia/Blood Transfusion Reactions: No Reported Reaction Smoking Status: Never smoker - Past Family History Mother Family Medical History: Cancer Additional Family Medical History / Comment(s): BREAST CANCER Father Family Medical History: Deep Vein Thrombosis (DVT) Medications and Allergies Home Medications Medication Instructions Recorded Confirmed Type Atorvastatin [Lipitor] 20 mg PO HS 11/04/19 12/11/24 History Cholecalciferol [Vitamin D3 (25 1,000 unit PO DAILY 11/04/19 12/11/24 History Mcg = 1000 Iu)] Famotidine [Pepcid AC] 10 mg PO DIRECTED PRN 11/04/19 12/11/24 History L.acidoph,Paracasei, B.lactis 1 each PO DAILY 11/04/19 12/11/24 History [Probiotic] Choteau-3 Fatty Acids [Choteau-3] 1 dose PO DAILY 11/04/19 12/11/24 History Super Antwan (Calcium Supplement) 1 tab PO DAILY 11/04/19 12/11/24 History hydroCHLOROthiazide 25 mg PO DAILY 10/13/23 12/11/24 History Gabapentin 300 mg PO HS 12/11/24 12/11/24 History Ibuprofen 600 mg PO Q8H PRN 12/11/24 12/11/24 History Valsartan 160 mg PO BID 12/11/24 12/11/24 History amLODIPine [Norvasc] 2.5 mg PO DAILY 12/11/24 12/11/24 History Allergies Allergy/AdvReac Type Severity Reaction Status Date / Time corn Allergy Unknown POSITIVE Verified 12/11/24 15:14 ALLERGY TESTING Physical Examination - Hip left Gait: antalgic Tenderness with palpation: anterior Pain with motion: internal rotation and hip flexion ROM: flexion: 70 degrees ROM: internal rotation: 5 degrees ROM: external rotation: 40 degrees Crepitus with motion: Yes Strength: extension: 5/5 Strength: flexion: 5/5 Strength: abduction: 5/5 Tests: impingement tests: positive Results The patient is a well-developed well-nourished female approximately 5 foot 9, 171 pounds of mesomorphic habitus. HEENT exam is nonfocal, neck is supple. She has painful passive motion of her left hip. She has an antalgic gait pattern. Her distal neurovascular appears intact in the left lower extremity. - Diagnostic results Hip x-ray: image reviewed (X-rays of the left hip obtained the office show severe osteoarthrosis with [id number] changes along with subchondral sclerosis.) Assessment and Plan Assessment: Left hip severe osteoarthrosis History of lumbar fusion Plan: I talked to the patient at length regarding her condition along with treatment options. At this point she is quite symptomatic having pain and mechanical symptoms related to her left hip osteoarthrosis despite previous conservative measures. After a thorough discussion she opts to proceed with surgery. We will plan to proceed with left total hip arthroplasty utilizing an anterior approach. Risks and benefits were discussed at length in layman's terms. We will institute DVT prophylaxis postoperatively.
[~2024-12-18 11:04] MED LIST changes: +HYDROmorphone 0.5 MG/0.5 ML SYRINGE IVP PRN; -LACTATED RINGERS 1,000 ML IV SCH; +TRANEXAMIC 1,000 MG/100ML-NACL 1,000 MG in SALINE 1 100ML.BAG IVPB PRN; +fentaNYL (PF) 50 MCG/ML 2 ML AMP IV PRN
[2024-12-18] MEDS: IV FLUID CONTINUATION 1,000 ML IV ONE ×2 (12:00→14:04)
[2024-12-18] MEDS: LACTATED RINGERS 1,000 ML IV SCH (12:07)
[2024-12-18] MEDS: ACETAMINOPHEN TAB 500 MG TAB PO PRN (12:07)
[2024-12-18] MEDS: MELOXICAM 7.5 MG TAB PO PRN (12:07)
[2024-12-18] MEDS: ONDANSETRON 4 MG/2 ML VIAL IVP STA (12:11)
[2024-12-18] MEDS: DEXAMETHASONE SOD PHOSPHATE 4 MG/ML 1 ML VIAL IVP STA (12:12)
[2024-12-18] MEDS: MIDAZOLAM 2 MG/2 ML VIAL IVP ONE (12:27)
[2024-12-18] MEDS: fentaNYL (PF) 50 MCG/ML 2 ML AMP IVP ONE (12:27)
[2024-12-18] MEDS ORDERED: fentaNYL (PF) 50 MCG/ML 2 ML AMP ONE (12:43)
[2024-12-18] MEDS ORDERED: ROPIVACAINE 5 MG/ML 30 ML VIAL ONE (12:43)
[2024-12-18] MEDS ORDERED: PROPOFOL 10 MG/ML 20 ML VIAL IV ONE (12:43)
[2024-12-18] MEDS ORDERED: MIDAZOLAM 2 MG/2 ML VIAL ONE (12:43)
[2024-12-18] MEDS ORDERED: NEOSTIGMINE 1 MG/ML 10 ML VIAL ONE (12:43)
[2024-12-18] MEDS ORDERED: ROCURONIUM 10 MG/ML (5 ML VIAL) IV ONE (12:43)
[2024-12-18] MEDS ORDERED: GLYCOPYRROLATE 0.2 MG/ML 2 ML VIAL ONE (12:43)
[2024-12-18] MEDS ORDERED: PHENYLEPHRINE-0.9% NACL SYG 1,000 MCG/10 ML SYRINGE ONE (12:43)
[2024-12-18] MEDS ORDERED: LIDOCAINE 1% INJ 10MG/ML (20 ML MDV) ONE (12:43)
[2024-12-18] MEDS ORDERED: DEXAMETHASONE SOD PHOSPHATE 4 MG/ML 1 ML VIAL ONE (12:43)
[2024-12-18] MEDS ORDERED: TRANEXAMIC 1,000 MG/100ML-NACL PREMIX BAG ONE (12:43)
[2024-12-18] MEDS ORDERED: SUCCINYLCHOLINE CHLORIDE 200 MG/10 ML VIAL IV ONE (12:43)
[2024-12-18] MEDS ORDERED: HYDROmorphone (PF) 1 MG/ML ONE (12:43)
[2024-12-18] MEDS ORDERED: NALOXONE 0.4 MG/ML 1 ML VIAL IV PRN (14:32)
[2024-12-18] MEDS ORDERED: HYDROcodone/APAP 5-325MG 1 EACH TAB PO PRN (14:32)
[2024-12-18] MEDS ORDERED: MAGNESIUM HYDROXIDE 2,400 MG/30 ML CUP PO PRN (14:32)
[2024-12-18] MEDS ORDERED: HYDROmorphone 0.5 MG/0.5 ML SYRINGE IVP PRN ×2 (14:32)
[2024-12-18] MEDS ORDERED: hydrOXYzine pamoate 25 MG CAP PO PRN (14:32)
--- NOTE | 2024-12-18 14:43 | P.ANPRN ---
Procedure Note - Anesthesia - Nerve Block Performed Left Luis A Single Time Out Performed: Yes Date of Procedure: 12/18/23 Procedure Start Time: 12:26 Procedure Stop Time: 12:32 Location of Patient: PreOp Indication: Acute Post-Operative Pain, Requested by Surgeon Sedation Type: Sedate with meaningful contact maintained Preparation: Sterile Prep Position: Supine Needle Types: Pajunk Needle Gauge: 21 Ultrasound used to visualize needle placement: Yes Ultrasound used to observe medication spread: Yes Blood Aspirated: No Pain Paresthesia on Injection Noted: No Resistance on Injection: Normal Image Stored and Saved: Yes Events: Uneventful and Well Tolerated (Ropivacaine 0.5% 20 cc plus dexamethasone 4 mg)
--- NOTE | 2024-12-18 14:48 | P.OP ---
Date of Procedure: 12/18/24 Preoperative Diagnosis: Left hip severe osteoarthrosis Postoperative Diagnosis: Same Procedure(s) Performed: Left total hip arthroplastypress-fitanterior approach Implants: DePuy Corail size 12-125 degree high offset collared press-fit femoral stem, 36+1.5 cobalt chrome femoral head, 56 mm [place] acetabular shell with neutral polyethylene liner. I did utilize a 6.5 x 30 mm cancellous screw. Anesthesia: GETA Surgeon: Dewayne Lau Jewelry Engraver #1: Jevon Zavaleta Estimated Blood Loss (ml): 200 Pathology: none sent Disposition: PACU Indications for Procedure: The patient is a 74-year-old female who presents with progressive left hip pain secondary to osteoarthrosis despite conservative measures. A discussion of the risks and benefits of operative intervention versus continued conservative measures was made with the patient. She opted proceed with surgery. Operative risks include infection, neurovascular injury, development of blood clots, leg length discrepancy, instability, possible component loosening/failure and possible need for subsequent procedures was discussed. Informed consent was obtained. Operative Findings: As below Description of Procedure: The patient was brought to the operating room, and after induction of spinal anesthesia was placed supine on the Krystle table. Positioning was checked with fluoroscopy. The left hip was then prepped and draped in a normal fashion. A 12 cm incision was then made starting 2 fingerbreadths distal and 3 finger breaths posterior to the ASIS in line with the proximal femur. The skin was incised sharply. Subcutaneous tissues were divided sharply. Electrocautery was used for hemostasis. The fascia was split in line with skin incision. The interval between the sartorius and tensor fascia petr was then bluntly developed. The posterior fascia was opened with electrocautery. The lateral circumflex vessels were identified and cauterized prior to sectioning. A retractor was placed along the superior femoral neck as well as the anterior acetabular rim. A wide capsulotomy was performed. The neck cut was then made at a 45 angle to the shaft approximately 1 1/2 cm above the level of the lesser trochanter. The head was extracted. Attention was then paid towards preparing the acetabular. Anterior and posterior retractors were placed. The remaining capsular labral tissue sharply debrided clearly defining the aceta bular margins. I began reaming with a 51 mm reamer taking care to initially medialize then reaming at 45 of abduction and 20 of anteversion. Sequential reaming is performed up to 55 mm. A trial 56 mm acetabular shell was inserted in the same orientation and was fully seated. There was good rim fit and stability. Positioning was checked with fluoroscopy. The final 56 mm acetabular shell was inserted again at 45 of abduction and 20 of anteversion. This was fully seated. There was good stability, however I did place a posterior superior 6.5 mm x 30 mm cancellous screw for additional fixation with good purchase. Again fluoroscopy was used to check the adequacy of placement. A neutral polyethylene liner was gently impacted. Care was taken to avoid any soft tissue interposition. Pulsatile lavage was utilized. Attention was then paid towards preparing the proximal femur. The central region was cleared of soft tissue. A canal finder was used to find the femoral canal. Sequential broaching was performed up to size 12 taking care to lateralize proximally. A calcar mill was used to fashion the medial calcar. There was good rotational stability. A 125 degree high offset neck along with a 36 mm +1.5 head was placed. The hip was gently reduced. Fluoroscopy was used to check the adequacy of positioning along with leg lengths. I felt both were good. The hip was gently dislocated. The trial components were removed. The final size 12 collared 125 degree high offset press-fit femoral stem was inserted parallel to the posterior cortex. This was fully seated and there was good rotational stability. A 36 mm +1.5 cobalt chrome femoral head was placed. This was gently impacted. The hip was then gently reduced. Final fluoroscopic view showed adequate placement implant along with nondenominational of leg length. Stability was checked with 80 of external rotation and 60 of extension of the right hip. The wound was irrigated with sterile lavage. The fascia was closed with running 0 Vicryl suture. There was minimal drainage therefore a deep drain was not placed. The second dose of IV TXA was given. The subcutaneous tissues were reapproximated interrupted 2-0 Vicryl sutures. The skin was reapproximated with 3-0 subcuticular strata fix suture. Skin tape and adhesive was applied. A sterile dressing was applied. The patient was then awoken from sedation and transferred to recovery room in good condition. Blood loss was estimated at 200 mL. No complications were incurred. Sponge and needle counts were correct at the end of the case. Jevon MCPHERSON assisted during the major components is case to include exposure, bone resection, implantation, and closure.
--- NOTE | 2024-12-18 14:55 | FL ---
EXAMINATION TYPE: FL guidance operating room, XR Hip Limited LT DATE OF EXAM: 12/18/2024 2:26 PM COMPARISON: Pre Operative Images if available both CT/MRI or plain film CLINICAL INDICATION: Female, 74 years old with history of LEFT ANTERIOR HIP; TECHNIQUE: FL guidance operating room, XR Hip Limited LT, multiple fluoroscopic images provided for p rocedure. DAP: 20.1 mGym2 Gycm2 uGym2 cGycm2 or equivalent. FINDINGS: Fluoroscopic images during internal fixation/arthroplasty demonstrate hardware in appropriate positio n. Hardware appears intact. No immediate complication identified. IMPRESSION: 1. No evidence for intraoperative complication. 2. Please see the operative/procedural note for further details. [facility], , 12/18/2024 2:52 PM
--- NOTE | 2024-12-18 15:19 | XR ---
EXAMINATION TYPE: XR Hip Limited LT DATE OF EXAM: 12/18/2024 3:06 PM COMPARISON: None CLINICAL INDICATION: Female, 74 years old with history of Status post hip surgery, assess surgical al ignment; PHH, pain TECHNIQUE: XR Hip Limited LT; Frontal view FINDINGS: Post arthroplasty changes, hardware is intact, alignment is appropriate. No evidence of fra cture. Postoperative changes of the soft tissues with subcutaneous gas. No evidence of any acute osse ous pathology or joint dislocation. IMPRESSION: Hip arthroplasty with hardware intact and in appropriate alignment. No acute fracture. [facility], , 12/18/2024 3:17 PM
[2024-12-18] MEDS: DEXAMETHASONE SOD PHOSPHATE 4 MG/ML 1 ML VIAL IV ONE (17:38)
[2024-12-18] MEDS: ONDANSETRON 4 MG/2 ML VIAL IVP ONE (17:38)
[2024-12-18 20:31] VITALS: RESP 17
[2024-12-18] MEDS: GABAPENTIN 300 MG CAP PO SCH (20:50)
[2024-12-18] MEDS: SENNOSIDES-DOCUSATE SODIUM 1 EACH TAB PO SCH (20:50)
[2024-12-18] MEDS: VALSARTAN 160 MG TAB PO SCH (22:17)
[2024-12-18] MEDS: ATORVASTATIN 20 MG TAB PO SCH (22:17)
[2024-12-19 03:31] VITALS: BP 127/72; PULSE 92; TEMP 98.1
[2024-12-19] MEDS: HYDROcodone/APAP 7.5-325MG 1 EACH TAB PO PRN (08:03)
[2024-12-19] MEDS ORDERED: Acetaminophen-Codeine 300-30mg TAB PO PRN (08:30)
--- NOTE | 2024-12-19 08:37 | P.DS ---
Providers Date of admission: 12/18/2024 Expected date of discharge: 12/19/24 Attending physician: Dewayne Lau Consults: 12/18/24 14:32 Consult Physician Routine Consulting Provider: Fito Estrella Consult Reason/Comments: medical management s/p direct anterior left total hip arthroplasty Do you want consulting provider notified?: Yes Primary care physician: Wes Chu Hospital Course: Date of admission: 12/18/2024 Date of discharge: 12/19/2024 Admission diagnosis: Left hip osteoarthritis Discharge diagnosis: Same Attending physician: Dr. Lau Surgical procedures: Direct anterior left total hip arthroplasty Brief history: Patient is a 74-year-old female with a history of progressive primary left hip osteoarthritis. At this point patient has failed conservative treatment measures and has opted to proceed with a elective left total hip arthroplasty. Hospital course: Details of patient's surgery can be found in operative report. Patient tolerated the procedure well and was subsequently transported to orthopedic floor. Patient's orthopeidc and medical care was provided daily. Patient had daily laboratory tests performed for evaluation of overall blood counts. Patient had daily physical therapy to include strengthening range of motion as well as education with walker ambulation. Patient was treated with Xarelto for their postoperative DVT prophylaxis during their inpatient stay. Patient was noted to have a relatively uneventful postoperative course. Patient reported satisfactory pain control with oral pain medications by postoperative day 1. Patient showed satisfactory progress with physical therapy. Patient moved steadily through the program and had no difficulty meeting the goals by postoperative day 1. Given patient's otherwise satisfactory course and having met physical therapy goals, plan is to discharge patient home with health services on postoperative day 1. Discharge condition/disposition: Patient will be discharged home with health services in stable condition. Discharge medications: Instructions are given on resumption of patient's normal daily medications per primary care recommendation, in addition patient will be prescribed Tylenol with codeine; Eliquis; gabapentin. Discharge instructions: 1. Wound care and infection precautions, keep incision dry and covered while showering, no lotions, creams, moisturizers. No soaking, tubs, pools, hottubs. Do not scrub over the incision. 2. Weight-bear as tolerated with walker / cane until follow-up. 3. Ice and elevate when necessary. Do not exceed 20 minutes per hour with ice pack. 4. Utilize compression sleeve until seen at first follow up appointment. 5. Visiting nursing care. 6. Home physical therapy including home CPM. 7. Pain meds and anticoagulants per prescription. 8. Pain medication has potential to cause constipation. Increase oral fluid and fiber intake. Contact primary care provider if you have not had a bowel movement within 48 hours after discharge 9. No anti-inflammatory medication until discussed at first post operative visit, this including Motrin, Aleve, Mobic, Diclofenac. 10. Follow up in office at 2 weeks postop with Dimitris Baez PA-C / Jevon Zavaleta PA-C 11. Follow up with your primary care doctor 7-10 days after discharge. 12. Contact [facility] with any questions, . Assessment: Left hip osteoarthritis Procedures: Direct anterior left total hip arthroplasty Patient Condition at Discharge: Good Plan - Discharge Summary Discharge Rx Participant: Yes New Discharge Prescriptions: New Apixaban [Eliquis] 2.5 mg PO BID #60 tab Acetaminophen-Codeine 300-30mg [Tylenol w/codeine #3] 1 tab PO Q6H PRN #28 tablet PRN Reason: Pain Gabapentin 300 mg PO HS #21 cap No Action Cholecalciferol [Vitamin D3 (25 Mcg = 1000 Iu)] 1,000 unit PO DAILY Atorvastatin [Lipitor] 20 mg PO HS Super Antwan (Calcium Supplement) 1 tab PO DAILY [place]-3 Fatty Acids [[place]-3] 1 dose PO DAILY L.acidoph,Paracasei, B.lactis [Probiotic] 1 each PO DAILY Famotidine [Pepcid AC] 10 mg PO DIRECTED PRN PRN Reason: Heartburn Ibuprofen 600 mg PO Q8H PRN PRN Reason: Pain hydroCHLOROthiazide 25 mg PO DAILY amLODIPine [Norvasc] 2.5 mg PO DAILY Valsartan 160 mg PO BID Gabapentin 300 mg PO HS Discharge Medication List Atorvastatin [Lipitor] 20 mg PO HS 11/04/19 [History] Cholecalciferol [Vitamin D3 (25 Mcg = 1000 Iu)] 1,000 unit PO DAILY 11/04/19 [History] Famotidine [Pepcid AC] 10 mg PO DIRECTED PRN 11/04/19 [History] L.acidoph,Paracasei, B.lactis [Probiotic] 1 each PO DAILY 11/04/19 [History] [place]-3 Fatty Acids [[place]-3] 1 dose PO DAILY 11/04/19 [History] Super Antwan (Calcium Supplement) 1 tab PO DAILY 11/04/19 [History] hydroCHLOROthiazide 25 mg PO DAILY 10/13/23 [History] Gabapentin 300 mg PO HS 12/11/24 [History] Ibuprofen 600 mg PO Q8H PRN 12/11/24 [History] Valsartan 160 mg PO BID 12/11/24 [History] amLODIPine [Norvasc] 2.5 mg PO DAILY 12/11/24 [History] Acetaminophen-Codeine 300-30mg [Tylenol w/codeine #3] 1 tab PO Q6H PRN #28 tablet 12/19/24 [Rx] Apixaban [Eliquis] 2.5 mg PO BID #60 tab 12/19/24 [Rx] Gabapentin 300 mg PO HS #21 cap 12/19/24 [Rx] Follow up Appointment(s)/Referral(s): Jevon Zavaleta, SHAWNA [PHYSICIAN SUPERVISOR FRAME SAMPLE AND PATTERN] - 2 Weeks Patient Instructions/Handouts: Anterior Hip Replacement (GEN) Activity/Diet/Wound Care/Special Instructions: Orthopedic Discharge Instructions: 1. Wound care and infection precautions, keep incision dry and covered while showering, no lotions, creams, moisturizers. No soaking, pools, hot tubs. Do not scrub over incision. 2. Weight-bear as tolerated with walker / cane until follow-up. 3. Ice and elevate when necessary. Do not exceed 20 minutes per hour with ice pack. 4. Utilize compression sleeve until seen at first follow up appointment. 5. Pain meds and anticoagulants per prescription. 6. Pain medication has potential to cause constipation. Increase oral fluid and fiber intake. Contact primary care provider if you have not had a bowel movement within 48 hours after discharge. 7. No anti-inflammatory medication until discussed at first post operative visit, this including Motrin, Aleve, Mobic, Diclofenac. 8. Follow up in office at 2 weeks postop with Dimitris Baez PA-C / Jevon Zavaleta PA-C 9. Follow up with your primary care doctor 7-10 days after discharge. 10. Contact [facility] with any questions, . Keep incision clean, dry, intact. While showering, cover fusion tape with Saran wrap. Keep fusion tape on until follow-up appointment in office in 2 weeks. Discharge Disposition: HOME WITH HOME HEALTH SERVICES
--- NOTE | 2024-12-19 08:41 | P.PN ---
Subjective Progress Note Date: 12/19/24 Principal diagnosis: Left hip osteoarthritis Patient was seen at bedside this morning lying in semirecumbent position with dressing present over left hip. Patient says she has not had much pain since surgery yesterday. She says she has been up walking under her own power since surgery yesterday. She says she has urinated several times without issue. Patient states no bowel movement yet, however, patient says she has been passing gas. Patient denies any other issues at this time. Objective - Vital Signs Vital signs: Vital Signs Temp 98.1 F 12/19/24 01:57 Pulse 92 12/19/24 01:57 Resp 17 12/19/24 01:57 BP 127/72 12/19/24 01:57 Pulse Ox 94 L 12/19/24 01:57 FiO2 Intake & Output 12/18/24 12/19/24 12/19/24 18:59 06:59 18:59 Intake Total 1550 Output Total 200 Balance 1350 Weight 78.6 kg Intake: IV 1550 Output: Estimated Blood Loss 200 Other: Voiding Method Toilet # Voids 1 - Exam Left hip: Incision is clean, dry, and intact. The exofin fusion tape is in good condition. There is minimal soft tissue swelling and ecchymosis surrounding the medial and lateral aspects of the incision. Calf is soft, no tenderness with palpation. Plantar flexion, dorsiflexion, EHL, FHL are intact. Sensory exam to light touch throughout the extremity is intact, dorsal pedis pulses 2+. Assessment and Plan Assessment: 1. Left hip osteoarthritis -Postop day 1 status post direct anterior left total hip arthroplasty Plan: 1. Left hip osteoarthritis -direct anterior left total hip arthroplasty form yesterday, 12/18/2024. Patient stable bedside this morning. Pending PT/OT eval, discharge home today with health services. 2. Appreciate medical management 3. Pain management -[place] as needed; Tylenol 4. DVT prophylaxis -Xarelto in hospital. Going home with Eliquis 2.5 mg twice daily x 2 weeks 5. GI prophylaxis -senna 6. PT/OT -weightbearing as tolerated with walker 7. Encourage incentive spirometer use 8. Discharge planning -discharge home today with health services Time with Patient: Less than 30
[2024-12-19 09:18] LABS: Basophils # (A) 0.03 X 10*3/uL (0.00-0.10); Basophils % (A) 0.2 %; Eosinophils # (A) 0 X 10*3/uL (0.04-0.35); Eosinophils % (A) 0 %; HCT 30.5 % (37.2-46.3); Lymphocytes # (A) 1.78 X 10*3/uL (0.90-5.00); Lymphocytes % (A) 13.7 %; MCH 29.9 pg (27.0-32.0); MCHC 32.8 g/dL (32.0-37.0); MCV 91.3 FL (80.0-97.0); Mean Platelet Volume 9.6 FL (9.5-12.2); Monocytes # (A) 1.11 X 10*3/uL (0.20-1.00); Monocytes % (A) 8.5 %; NRBC Per 100 WBC 0 X 10*3/uL (0.00-0.01); Neutrophils # (A) 9.98 X 10*3/uL (1.80-7.70); Neutrophils % (A) 76.8 %; Platelet Count 295 X 10*3/uL (140-440); RBC 3.34 X 10*6/uL (4.10-5.20); RDW 13.5 % (11.5-14.5); WBC 13.01 X 10*3/uL (4.50-10.00)
[2024-12-19] MEDS: RIVAROXABAN 10 MG TAB PO SCH (10:54)
--- NOTE | 2024-12-20 03:20 | CONS ---
CONSULTATION REASON FOR CONSULTATION: Advice regarding GERD and other medical issues, requested by Orthopedics. HISTORY OF PRESENT ILLNESS: This 74-year-old woman with past medical history of hypertension, hyperlipidemia, history of GERD, underwent left total hip joint arthroplasty by Dr. Lau. There is no history of fever, rigors, chills, headaches, loss of consciousness, or seizures. PAST MEDICAL HISTORY: Hypertension, hyperlipidemia, GERD. Rest of the history and rest of the chart is also reviewed. HOME MEDICATIONS: Reviewed include hydrochlorothiazide, dose and rest of medications reviewed. ALLERGIES: [place]. FAMILY HISTORY: History of breast cancer in family. SOCIAL HISTORY: No history of smoking. REVIEW OF SYSTEMS: A 14-point review of systems is negative except as mentioned earlier. PHYSICAL EXAMINATION: VITAL SIGNS: Pulse is 92, blood pressure 127/70, respirations 17. HEENT: Conjunctivae normal. NECK: No JVD. CARDIOVASCULAR: S1, S2. RESPIRATIONS: Breath sounds diminished at the bases. Few scattered rhonchi. ABDOMEN: Soft. LEGS: Status post left hip artroplasty. NERVOUS SYSTEM: Nonfocal. LABORATORY DATA: WBC 13.01. ASSESSMENT: 1. Status post left hip arthroplasty. 2. Elevated WBC, possibly reactive. 3. Gastroesophageal reflux disease. 4. Hypertension. 5. History of hyperlipidemia. 6. Cholecystectomy. RECOMMENDATIONS AND DISCUSSION: This 74-year-old woman presented after surgery is medically stable at this time, I recommend resume the home medications. DVT prophylaxis. Incentive spirometry. Rest of the recommendations per Orthopedic Surgery. Recommend close followup with primary physician after discharge. MMODL / IJN: [id number] /
== END 2024-12-19 11:46 | disposition home health service (06) ==
LOC: OR 11:04 → 4SSUR 15:52 → OR 12-19 11:46
PROVIDERS: ATTEND Orthopaedic Surgery
DX: M16.12 Unilateral primary osteoarthritis, left hip (principal); K21.9 Gastro-esophageal reflux disease without esophagitis; I10 Essential (primary) hypertension; E78.5 Hyperlipidemia, unspecified; Z86.0100 Personal history of colon polyps, unspecified; Z90.49 Acquired absence of other specified parts of digestive tract; Z98.1 Arthrodesis status; Z80.3 Family history of malignant neoplasm of breast; Z79.1 Long term (current) use of non-steroidal anti-inflammatories (NSAID); Z79.02 Long term (current) use of antithrombotics/antiplatelets; Z79.899 Other long term (current) drug therapy
CPT/HCPCS: 27130; 64449; 97161; 97166; 64999; 85025; 73501; C1776; J2250; J0330; J1100; J2710; J0690 ×2; J2405; J2003; J3010; J1171; J2795; J2704; J2371; J1596

== ENCOUNTER → 2025-02-25 | Outpatient (CLI) | payer MEDICARE ==
--- NOTE | 2025-02-25 15:30 | MM ---
Reason for Exam: Follow-up at short interval from prior study. Last mammogram was performed 1 year(s) and 5 month(s) ago. Patient History: Menarche at age 13. First Full-Term at age 17. Postmenopausal. Mother had breast cancer, age 87. Risk Values: Peace 5 year model risk: 3.3%. NCI Lifetime model risk: 7.5%. Prior Study Comparison: 12/13/2013 Bilateral Screening Mammogram, [facility]. 08/20/2019 Bilateral Screening Mammogram, [facility]. 08/31/2022 Bilateral MG 3D screening mammo w/cad, [facility]. 09/18/2023 Bilateral MG 3D screening mammo w/cad, [facility]. 09/28/2023 Right MG 3D work up w/cad RT, [facility]. 04/02/2024 Right MG 3D diag mammo w/cad RT, [facility]. Tissue Density: There are scattered areas of fibroglandular density. Analyzed By CAD. Overall Assessment: Benign, BI-RAD 2 Management: Screening Mammogram of both breasts in 1 year. Electronically signed and approved by: Steve Constantino M.D.
== END | disposition home or self-care (01) ==
LOC: RADMAMWWP 14:55
PROVIDERS: ATTEND Obstetrics & Gynecology
DX: R92.8 Other abnormal and inconclusive findings on diagnostic imaging of breast (principal); R92.323 Mammographic fibroglandular density, bilateral breasts; Z78.0 Asymptomatic menopausal state; Z80.3 Family history of malignant neoplasm of breast
CPT/HCPCS: 77062; 77066

== ENCOUNTER 2025-04-15 10:26 | Inpatient (IN) | payer MEDICARE ==
--- NOTE | 2025-04-14 08:29 | P.HPOR ---
History of Present Illness H&P Date: 04/14/25 Chief Complaint: Right hip pain The patient is a 74-year-old female who presents with progressive right hip pain for the past year. She is having anterior groin and thigh pain with weightbearing activities. She is having night symptoms. She does use a cane. She takes tramadol for this. She notes daily pain that limits her normal function and activities. Review of Systems Per HPI Past Medical History Past Medical History: Hyperlipidemia, Hypertension, Osteoarthritis (OA) Additional Past Medical History / Comment(s): HX OF COLON POLYPS, IBS WITH DIARRHEA/CONSTIPATION , PROLAPSED BLADDER-wears pessary History of Any Multi-Drug Resistant Organisms: None Reported Past Surgical History: Back Surgery, Cholecystectomy, Joint Replacement, Orthopedic Surgery Additional Past Surgical History / Comment(s): lumbar spinal fusion 2023, Total left hip Dec 2024. Past Anesthesia/Blood Transfusion Reactions: No Reported Reaction Smoking Status: Never smoker - Past Family History Mother Family Medical History: Cancer Additional Family Medical History / Comment(s): BREAST CANCER Father Family Medical History: Deep Vein Thrombosis (DVT) Medications and Allergies Home Medications Medication Instructions Recorded Confirmed Type Atorvastatin [Lipitor] 20 mg PO HS 11/04/19 04/10/25 History Cholecalciferol [Vitamin D3 (25 1,000 unit PO DAILY 11/04/19 04/10/25 History Mcg = 1000 Iu)] Famotidine [Pepcid AC] 10 mg PO DIRECTED PRN 11/04/19 04/10/25 History [place]-3 Fatty Acids [[place]-3] 1 dose PO DAILY 11/04/19 04/10/25 History Super Antwan (Calcium Supplement) 1 tab PO DAILY 11/04/19 04/10/25 History hydroCHLOROthiazide 25 mg PO DAILY 10/13/23 04/10/25 History Valsartan 160 mg PO BID 12/11/24 04/10/25 History amLODIPine [Norvasc] 2.5 mg PO DAILY 12/11/24 04/10/25 History Gabapentin 300 mg PO HS #21 cap 12/19/24 04/10/25 Rx Allergies Allergy/AdvReac Type Severity Reaction Status Date / Time corn Allergy Unknown POSITIVE Verified 12/18/24 11:36 ALLERGY TESTING Physical Examination - Hip right Gait: antalgic Tenderness with palpation: anterior Pain with motion: internal rotation and hip flexion ROM: flexion: 80 degrees ROM: internal rotation: 0 degrees (With pain) ROM: external rotation: 60 degrees Strength: flexion: 5/5 Strength: abduction: 5/5 Tests: impingement tests: positive Results The patient is a well-developed well-nourished female approximately 5 foot 8, 177 pounds of mesomorphic habitus. HEENT exam is nonfocal, neck is supple. She has painful passive motion of the right hip. Straight leg raise is negative. Her distal neurovascular exam appears intact in the right lower extremity. - Diagnostic results Hip x-ray: image reviewed (X-rays of the right hip obtained the office show severe osteoarthrosis with [id number] changes along with subchondral sclerosis.) Assessment and Plan Assessment: Right hip severe osteoarthrosis History of lumbar fusion Plan: I talked to the patient at length regarding her condition along with treatment options. At this point she is quite symptomatic having pain and limitation secondary to right hip osteoarthrosis despite conservative measures. After a thorough discussion she opts to proceed with surgery. Will plan to proceed with a right total hip arthroplasty utilizing an anterior approach. Risks and benefits were discussed at length in layman's terms. We will institute DVT prophylaxis postoperatively.
[~2025-04-15 10:26] MED LIST changes: -HYDROmorphone 0.5 MG/0.5 ML SYRINGE IVP PRN; +ceFAZolin 2 GM in DEXTROSE 5% IN WATER 50 ML IVPB PRN; -fentaNYL (PF) 50 MCG/ML 2 ML AMP IV PRN
[2025-04-15] MEDS: IV FLUID CONTINUATION 1,000 ML IV ONE (11:05)
[2025-04-15] MEDS: ACETAMINOPHEN TAB 500 MG TAB PO PRN (11:35)
[2025-04-15] MEDS: MELOXICAM 7.5 MG TAB PO PRN (11:35)
[2025-04-15] MEDS: DEXAMETHASONE SOD PHOSPHATE 4 MG/ML 1 ML VIAL IVP STA (11:36)
[2025-04-15] MEDS: ONDANSETRON 4 MG/2 ML VIAL IVP STA (11:36)
[2025-04-15 11:48] LABS: African American GFR (CKD) 71 (>60 ml/min/1.73 sqM); Anion Gap 12 mmol/L; Blood Urea Nitrogen 19 mg/dL (7-17); Calcium 10.4 mg/dL (8.4-10.2); Carbon Dioxide 19 mmol/L (22-30); Chloride 96 mmol/L (98-107); Glucose 103 mg/dL (74-99); Non-African American GFR(CKD) 61 (>60 ml/min/1.73 sqM); Potassium 4.9 mmol/L (3.5-5.1); Sodium 127 mmol/L (137-145)
[2025-04-15] MEDS ORDERED: NALOXONE 0.4 MG/ML 1 ML VIAL IV PRN (12:12)
[2025-04-15] MEDS: LACTATED RINGERS 1,000 ML IV SCH (13:50)
[2025-04-15] MEDS: SODIUM CHLORIDE 0.9% 1,000 ML IV SCH (13:51)
--- NOTE | 2025-04-15 14:16 | P.CONS ---
History of Present Illness - Reason for Consult Consult date: 04/15/25 Medical Management, hyponatremia Requesting physician: Dewayne Lau - Chief Complaint Hyponatremia - History of Present Illness History of Presenting Illness: Patient is a very pleasant 75-year-old female with a past medical history of hypertension, hyperlipidemia, and osteoarthritis. She is currently admitted under orthopedic surgery team and was scheduled to undergo right total hip arthroplasty today with Dr. Lau. However, preoperative labs revealed hyponatremia and a repeat sodium again showing hyponatremia with sodium of 127. Surgery postponed at this time and we were consulted for medical management and treatment of hyponatremia. Patient seen and fully evaluated in preoperative room 13. She currently reports feeling discouraged over canceled surgery, but denies having any other complaints at this time. Preoperative labs revealed hypochloremic hyponatremia with sodium of 127 and chloride of 96. Patient reports taking daily hydrochlorothiazide with last time taking being yesterday morning. Preoperative labs also showing hypercalcemia and patient also on calcium supplement daily. She denies having any headache, lightheadedness, dizziness, chest pain, palpitations, shortness of breath, cough or congestion, nausea or vomiting, or experiencing any focal numbness/weakness/swelling in her extremities. Patient reports chronic pain in right hip radiating into right groin and right thigh with ambulation and awakening her throughout the night, but states it is currently controlled at this time. Review of systems: Pertinent positives and negatives as discussed in HPI, a complete review of systems was performed and all other systems are negative. Physical exam: Vital signs reviewed and stable. General: Nontoxic, no distress and appears stated age. Derm: Skin warm and dry, normal coloration for ethnicity. Head: Atraumatic, normocephalic and symmetric. Eyes: EOM's intact, no lid lag, and anicteric sclera Mouth: no lip lesions, mucus membranes moist Cardiovascular: regular rate and rhythm with normal S1S2, no murmur, positive posterior tibial pulses bilaterally, and cap refill < 2 seconds. Lungs: Respirations even, regular, and unlabored on room air. Lungs CTA bilaterally, no rhonchi, no rales, no wheezing, and no accessory muscle usage. Abdominal: soft, nontender to palpation, no guarding, no appreciable organomeg caitlyn Ext: ROM intact. No gross muscle atrophy, no edema, no contractures Neuro: Speech clear, face symmetrical and CN II-XII grossly intact with no noted focal neuro deficits Psych: Alert and oriented to person, place, time, and situation. Appropriate and pleasant affect. Assessment and Plan of Care: Hypochloremic hyponatremia -Suspect secondary to daily diuretic use with hydrochlorothiazide. -Hold hydrochlorothiazide and patient placed on gentle IV fluid hydration with 0.9% normal saline at 100 cc/h. -Repeat BMP this evening and again tomorrow morning. Adjustments to IV fluid based upon these results. -Order placed for stat TSH with reflex free T4. -At this time suspect hyponatremia secondary to daily hydrochlorothiazide, however if repeat sodium worsens with gentle IV fluid hydration will place orders for further hyponatremia workup. Hypercalcemia -Hold hydrochlorothiazide and daily calcium supplement. Patient started on gentle IV fluid hydration with 0.9% normal saline at 100 cc/h. Will continue to monitor for resolution/improvement. Hypertension - Monitor vital signs. Hold hydrochlorothiazide and continue daily medication regimen with amlodipine 2.5 mg daily and valsartan 160 mg twice daily. Hyperlipidemia - Continue daily medication regimen with atorvastatin 20 mg nightly Osteoarthritis Right hip pain -Patient admitted under orthopedic surgery team and is scheduled to undergo right total hip arthroplasty, discussed with orthopedic surgery PA and was informed surgery delayed secondary to hyponatremia and we were asked to see patient and preoperative room 13. Data and imaging reviewed: As stated above in HPI. Thank you for allowing us to participate in the care of this pleasant patient. Do not hesitate to contact us with questions. Someone can be reached from the [facility] hospitalist group all hours of the day at [phone] or via [email or web address]. Patient was seen independently by Nurse Practitioner. This document was prepared using Ech[employer] dictation software. Please allow for errors in floriculture teacher while rare they do occur. Aristeo Cortes NP rendered care for this patient independently, reviewed the findings and plan as documented in the note above and agree with plan. I did not physically speak with or examine the patient on this date. Past Medical History Past Medical History: Hyperlipidemia, Hypertension, Osteoarthritis (OA) Additional Past Medical History / Comment(s): HX OF COLON POLYPS, IBS WITH DIARRHEA/CONSTIPATION , PROLAPSED BLADDER-wears pessary History of Any Multi-Drug Resistant Organisms: None Reported Past Surgical History: Back Surgery, Cholecystectomy, Joint Replacement, Orthopedic Surgery Additional Past Surgical History / Comment(s): lumbar spinal fusion 2023, Total left hip Dec 2024. Past Anesthesia/Blood Transfusion Reactions: No Reported Reaction Smoking Status: Never smoker - Past Family History Mother Family Medical History: Cancer Additional Family Medical History / Comment(s): BREAST CANCER Father Family Medical History: Deep Vein Thrombosis (DVT) Medications and Allergies Home Medications Medication Instructions Recorded Confirmed Type Atorvastatin [Lipitor] 20 mg PO HS 11/04/19 04/15/25 History Cholecalciferol [Vitamin D3 (25 1,000 unit PO DAILY 11/04/19 04/15/25 History Mcg = 1000 Iu)] Famotidine [Pepcid AC] 10 mg PO DIRECTED PRN 11/04/19 04/15/25 History [place]-3 Fatty Acids [[place]-3] 1 dose PO DAILY 11/04/19 04/15/25 History Super Antwan (Calcium Supplement) 1 tab PO DAILY 11/04/19 04/15/25 History hydroCHLOROthiazide 25 mg PO DAILY 10/13/23 04/15/25 History Valsartan 160 mg PO BID 12/11/24 04/15/25 History amLODIPine [Norvasc] 2.5 mg PO DAILY 12/11/24 04/15/25 History Gabapentin 300 mg PO HS #21 cap 12/19/24 04/15/25 Rx Allergies Allergy/AdvReac Type Severity Reaction Status Date / Time corn Allergy Unknown POSITIVE Verified 04/15/25 10:58 ALLERGY TESTING Physical Exam Vitals: Vital Signs Temp Pulse Resp BP Pulse Ox 04/15/25 11:20 98.0 F 89 14 128/75 98 Intake and Output 04/14/25 04/15/25 04/15/25 22:59 06:59 14:59 Other: Weight 81 kg Results CBC & Chem 7: 04/15/25 11:28 Labs: Abnormal Lab Results - Last 24 Hours (Table) 04/15/25 Range/Units 11:28 Sodium 127 L (137-145) mmol/L Chloride 96 L (98-107) mmol/L Carbon Dioxide 19 L (22-30) mmol/L BUN 19 H (7-17) mg/dL Glucose 103 H (74-99) mg/dL Calcium 10.4 H (8.4-10.2) mg/dL
[2025-04-15] MEDS: ceFAZolin 2 GM in DEXTROSE 5% IN WATER 50 ML IVPB SCH (17:24)
[2025-04-15 18:11] LABS: African American GFR (CKD) 75 (>60 ml/min/1.73 sqM); Anion Gap 10 mmol/L; Blood Urea Nitrogen 19 mg/dL (7-17); Calcium 10.1 mg/dL (8.4-10.2); Carbon Dioxide 22 mmol/L (22-30); Chloride 95 mmol/L (98-107); Glucose 129 mg/dL (74-99); Non-African American GFR(CKD) 65 (>60 ml/min/1.73 sqM); Potassium 4.9 mmol/L (3.5-5.1); Sodium 127 mmol/L (137-145)
[2025-04-15] MEDS: GABAPENTIN 300 MG CAP PO SCH (20:33)
[2025-04-15] MEDS: ATORVASTATIN 20 MG TAB PO SCH (20:33)
[2025-04-15] MEDS: VALSARTAN 160 MG TAB PO SCH (20:33)
[2025-04-15] MEDS: SENNOSIDES-DOCUSATE SODIUM 1 EACH TAB PO SCH (20:35)
[2025-04-15 21:23] LABS: Glucose,Whole Blood 141 mg/dL (70-110)
[2025-04-16 08:09] LABS: Basophils # (A) 0.03 X 10*3/uL (0.00-0.10); Basophils % (A) 0.4 %; Eosinophils # (A) 0 X 10*3/uL (0.04-0.35); Eosinophils % (A) 0 %; HCT 36.3 % (37.2-46.3); Lymphocytes # (A) 1.53 X 10*3/uL (0.90-5.00); Lymphocytes % (A) 19.4 %; MCH 28.9 pg (27.0-32.0); MCHC 33.1 g/dL (32.0-37.0); MCV 87.5 FL (80.0-97.0); Mean Platelet Volume 9.2 FL (9.5-12.2); Monocytes # (A) 0.57 X 10*3/uL (0.20-1.00); Monocytes % (A) 7.2 %; NRBC Per 100 WBC 0 X 10*3/uL (0.00-0.01); Neutrophils % (A) 72.4 %; Platelet Count 272 X 10*3/uL (140-440); RBC 4.15 X 10*6/uL (4.10-5.20); WBC 7.88 X 10*3/uL (4.50-10.00)
[2025-04-16] MEDS: amLODIPine 2.5 MG TAB PO SCH (08:12)
[2025-04-16 08:29] LABS: Blood Urea Nitrogen 14.8 mg/dL (9.0-27.0); Calcium 9.5 mg/dL (8.7-10.3); Carbon Dioxide 21.7 mmol/L (21.6-31.8); Chloride 97 mmol/L (96-109); Glucose 110 mg/dL (70-110); Sodium 129 mmol/L (135-145)
--- NOTE | 2025-04-16 12:19 | P.PN ---
Subjective Progress Note Date: 04/16/25 Principal diagnosis: Right hip osteoarthritis; hyponatremia Patient was seen at bedside this morning on 4 S. sitting up in chair. Patient says she has been ambulating under her own power with the use of walker. Medicine is treating her for hyponatremia to get stabilized prior to surgery that has been rescheduled for 04/18/2025. Sodium level up to 129 as of this morning. Patient denies any other issues at this time. Objective - Vital Signs Vital signs: Vital Signs Temp 97.6 F 04/16/25 07:05 Pulse 82 04/16/25 08:00 Resp 16 04/16/25 08:00 BP 137/77 04/16/25 07:05 Pulse Ox 98 04/16/25 07:05 FiO2 Intake & Output 04/15/25 04/16/25 04/16/25 18:59 06:59 18:59 Intake Total 100 Balance 100 Weight 81 kg Intake: IV 100 Other: Voiding Method Toilet Toilet # Voids 0 3 - Exam Right hip: Patient does have stiffness and pain throughout the right hip during range of motion. There is some generalized tenderness of patient diffusely over the right hip. 4/5 in all major motor groups in bilateral lower extremities. calf is soft, no tenderness with palpation. Plantar flexion, dorsiflexion, EHL, FHL are intact. Sensory exam to light touch throughout the extremity is intact, dorsal pedis pulses 2+. - Labs CBC & Chem 7: 04/16/25 03:01 04/16/25 03:01 Labs: Abnormal Lab Results - Last 24 Hours (Table) 04/15/25 04/15/25 04/15/25 Range/Units 11:28 17:43 21:21 Hct (37.2-46.3) % MPV (9.5-12.2) FL Immature Gran # (0.00-0.04) X 10*3/uL Eosinophils # (0.04-0.35) X 10*3/uL Sodium 127 L 127 L (137-145) mmol/L Chloride 96 L 95 L (98-107) mmol/L Carbon Dioxide 19 L (22-30) mmol/L BUN 19 H 19 H (7-17) mg/dL Glucose 103 H 129 H (74-99) mg/dL POC Glucose (mg/dL) 141 H (70-110) mg/dL Calcium 10.4 H (8.4-10.2) mg/dL 04/16/25 04/16/25 Range/Units 03:01 03:01 Hct 36.3 L (37.2-46.3) % MPV 9.2 L (9.5-12.2) FL Immature Gran # 0.05 H (0.00-0.04) X 10*3/uL Eosinophils # 0 L (0.04-0.35) X 10*3/uL Sodium 129 L (137-145) mmol/L Chloride (98-107) mmol/L Carbon Dioxide (22-30) mmol/L BUN (7-17) mg/dL Glucose (74-99) mg/dL POC Glucose (mg/dL) (70-110) mg/dL Calcium (8.4-10.2) mg/dL Assessment and Plan Assessment: 1. Right hip osteoarthritis; hyponatremia Plan: 1. Right hip osteoarthritis; hyponatremia -continue with therapy daily. Weightbearing as tolerated with walker. Pain medication as needed. Medicine continuing to correct sodium level. Plan for surgical intervention on 04/18/2025 for direct anterior right total hip arthroplasty. Patient to be n.p.o. starting at midnight night. We will continue to follow patient during her stay in hospital. 2. Appreciate medical management 3. Pain management -gabapentin; Tylenol with codeine 4. DVT prophylaxis -mechanical 5. GI prophylaxis -senna 6. PT/OT -weightbearing as tolerated with walker 7. Encourage incentive spirometer use 8. Discharge planning -pending Time with Patient: Less than 30
--- NOTE | 2025-04-16 16:48 | P.PN ---
Subjective Progress Note Date: 04/16/25 Hospital Course: Patient is a very pleasant 75-year-old female with a past medical history of hypertension, hyperlipidemia, and osteoarthritis. She is currently admitted under orthopedic surgery team and was scheduled to undergo right total hip arthroplasty 04/15/[address] Lau. However, preoperative labs revealed hyponatremia and a repeat sodium again showing hyponatremia with sodium of 127. Surgery postponed at this time and we were consulted for medical management and treatment of hyponatremia. Physical exam: Patient seen and fully evaluated at bedside this morning. She currently denies having any complaints or concerns at this time. Patient expressing frustration over delayed surgery but also reports understanding. Patient updated that her sodium increased from 127-129 this morning so we will continue with current normal saline and repeat sodium later this evening and again tomorrow morning with plans for reported tentative surgery on 04/18/2025. Vital signs reviewed and stable. General: Nontoxic, no distress and appears stated age. Derm: Skin warm and dry, normal coloration for ethnicity. Head: Atraumatic, normocephalic and symmetric. Eyes: EOM's intact, no lid lag, and anicteric sclera Mouth: no lip lesions, mucus membranes moist Cardiovascular: regular rate and rhythm with normal S1S2, no murmur, positive posterior tibial pulses bilaterally, and cap refill < 2 seconds. Lungs: Respirations even, regular, and unlabored on room air. Lungs CTA bilater ally, no rhonchi, no rales, no wheezing, and no accessory muscle usage. Abdominal: soft, nontender to palpation, no guarding, no appreciable organomegaly Ext: ROM intact. No gross muscle atrophy, no edema, no contractures Neuro: Speech clear, face symmetrical and CN II-XII grossly intact with no noted focal neuro deficits Psych: Alert and oriented to person, place, time, and situation. Appropriate and pleasant affect. Assessment and Plan of Care: Hyponatremia, improving with IV fluid hydration -Suspect secondary to daily diuretic use with hydrochlorothiazide. -Hold hydrochlorothiazide and continue gentle IV fluid hydration with 0.9% normal saline at 100 cc/h. -Repeat BMP this evening and again tomorrow morning. Adjustments to IV fluid based upon these results. - TSH normal findings at 1.580. Hypercalcemia - Resolved with IV fluid hydration. Hypochloremia Resolved with IV fluid hydration. Hypertension - Monitor vital signs. Hold hydrochlorothiazide and continue daily medication regimen with amlodipine 2.5 mg daily and valsartan 160 mg twice daily. Hyperlipidemia - Continue daily medication regimen with atorvastatin 20 mg nightly Osteoarthritis Right hip pain -Patient admitted under orthopedic surgery team and is scheduled to undergo right total hip arthroplasty, discussed with orthopedic surgery PA and was informed surgery delayed secondary to hyponatremia and we were asked to see patient and preoperative room 13. Data and imaging reviewed: Labs reviewed. Sodium has been trended resulting at 127, 127, and this morning 129. CBC otherwise showing no significant abnormalities. Hypochloremia resolved with morning chloride of 97. Renal function unremarkable. Blood glucose 110. Calcium 9.5. TSH normal findings at 1.580 Vital signs reviewed. Blood pressure 137/77, heart rate 82, respiratory rate 16, temp 97.6 F, and SpO2 of 98% on room air. Thank you for allowing us to participate in the care of this pleasant patient. Do not hesitate to contact us with questions. Someone can be reached from the [facility] hospitalist group all hours of the day at [phone] or via [employer]. Patient was seen independently by Nurse Practitioner. This document was prepared using [employer] dictation software. Please allow for errors in fisher diving while rare they do occur. Aristeo Cortes NP rendered care for this patient independently, reviewed the findings and plan as documented in the note above and agree with plan. I did not physically speak with or examine the patient on this date. Objective - Vital Signs Vital signs: Vital Signs Temp 97.6 F 04/16/25 07:05 Pulse 82 04/16/25 07:05 Resp 16 04/16/25 07:05 BP 137/77 04/16/25 07:05 Pulse Ox 98 04/16/25 07:05 FiO2 Intake & Output 04/15/25 04/16/25 04/16/25 18:59 06:59 18:59 Intake Total 100 Balance 100 Weight 81 kg Intake: IV 100 Other: Voiding Method Toilet # Voids 0 3 - Labs CBC & Chem 7: 04/16/25 03:01 04/16/25 03:01 Labs: Abnormal Lab Results - Last 24 Hours (Table) 04/15/25 04/15/25 04/15/25 Range/Units 11:28 17:43 21:21 Hct (37.2-46.3) % MPV (9.5-12.2) FL Immature Gran # (0.00-0.04) X 10*3/uL Eosinophils # (0.04-0.35) X 10*3/uL Sodium 127 L 127 L (137-145) mmol/L Chloride 96 L 95 L (98-107) mmol/L Carbon Dioxide 19 L (22-30) mmol/L BUN 19 H 19 H (7-17) mg/dL Glucose 103 H 129 H (74-99) mg/dL POC Glucose (mg/dL) 141 H (70-110) mg/dL Calcium 10.4 H (8.4-10.2) mg/dL 04/16/25 04/16/25 Range/Units 03:01 03:01 Hct 36.3 L (37.2-46.3) % MPV 9.2 L (9.5-12.2) FL Immature Gran # 0.05 H (0.00-0.04) X 10*3/uL Eosinophils # 0 L (0.04-0.35) X 10*3/uL Sodium 129 L (137-145) mmol/L Chloride (98-107) mmol/L Carbon Dioxide (22-30) mmol/L BUN (7-17) mg/dL Glucose (74-99) mg/dL POC Glucose (mg/dL) (70-110) mg/dL Calcium (8.4-10.2) mg/dL
[2025-04-16 18:23] LABS: African American GFR (CKD) 81 (>60 ml/min/1.73 sqM); Anion Gap 10 mmol/L; Blood Urea Nitrogen 16 mg/dL (7-17); Calcium 9.4 mg/dL (8.4-10.2); Carbon Dioxide 20 mmol/L (22-30); Chloride 101 mmol/L (98-107); Glucose 118 mg/dL (74-99); Non-African American GFR(CKD) 70 (>60 ml/min/1.73 sqM); Potassium 3.7 mmol/L (3.5-5.1); Sodium 131 mmol/L (137-145)
[2025-04-16] MEDS: hydrOXYzine pamoate 25 MG CAP PO PRN (21:39)
[2025-04-16] MEDS: Acetaminophen-Codeine 300-30mg TAB PO PRN (21:41)
[2025-04-17 08:53] LABS: HCT 33.3 % (37.2-46.3); HGB 10.8 g/dL (12.0-15.0); MCH 28.7 pg (27.0-32.0); MCHC 32.4 g/dL (32.0-37.0); MCV 88.6 FL (80.0-97.0); Mean Platelet Volume 9.1 FL (9.5-12.2); NRBC Per 100 WBC 0 X 10*3/uL (0.00-0.01); Platelet Count 242 X 10*3/uL (140-440); RBC 3.76 X 10*6/uL (4.10-5.20); RDW 13.3 % (11.5-14.5); WBC 6.86 X 10*3/uL (4.50-10.00)
[2025-04-17 09:16] LABS: BUN/Creat Ratio 18.25 Ratio (12.00-20.00); Blood Urea Nitrogen 14.6 mg/dL (9.0-27.0); Carbon Dioxide 18.2 mmol/L (21.6-31.8); Chloride 102 mmol/L (96-109); Glucose 90 mg/dL (70-110); Magnesium 1.9 mg/dL (1.5-2.4); Potassium 4.2 mmol/L (3.5-5.5); Sodium 132 mmol/L (135-145)
[2025-04-17] MEDS: Acetaminophen-Codeine 300-30mg TAB PO PRN (09:30)
--- NOTE | 2025-04-17 12:41 | P.PN ---
Subjective Progress Note Date: 04/17/25 Principal diagnosis: Right hip osteoarthritis; hyponatremia Patient was seen at bedside this morning on 4 S. sitting up in chair. Patient says she has been ambulating under her own power with the use of walker. Medicine is treating her for hyponatremia to get stabilized prior to surgery that has been rescheduled for tmrw, 04/18/2025. Sodium level up to 132 as of this morning. Patient denies any other issues at this time. Objective - Vital Signs Vital signs: Vital Signs Temp 98.3 F 04/17/25 07:29 Pulse 77 04/17/25 07:29 Resp 17 04/17/25 07:29 BP 121/73 04/17/25 07:29 Pulse Ox 94 L 04/17/25 07:29 FiO2 Intake & Output 04/16/25 04/17/25 04/17/25 18:59 06:59 18:59 Intake Total 1450 Balance 1450 Intake: Intake, IV Titration 800 Amount Sodium Chloride 0.9% 1, 800 000 ml @ 100 mls/hr IV . Q10H JORGE LUIS Rx#:[id number] Oral 650 Other: Voiding Method Toilet Toilet # Voids 4 - Exam Right hip: Patient does have stiffness and pain throughout the right hip during range of motion. There is some generalized tenderness of patient diffusely over the right hip. 4/5 in all major motor groups in bilateral lower extremities. calf is soft, no tenderness with palpation. Plantar flexion, dorsiflexion, EHL, FHL are intact. Sensory exam to light touch throughout the extremity is intact, dorsal pedis pulses 2+. - Labs CBC & Chem 7: 04/17/25 03:30 04/17/25 03:30 Labs: Abnormal Lab Results - Last 24 Hours (Table) 04/16/25 04/16/25 Range/Units 03:01 17:45 Sodium 129 L 131 L (135-145) mmol/L Carbon Dioxide 20 L (22-30) mmol/L Glucose 118 H (74-99) mg/dL Assessment and Plan Assessment: 1. Right hip osteoarthritis; hyponatremia Plan: 1. Right hip osteoarthritis; hyponatremia -continue with therapy daily. Weightbearing as tolerated with walker. Pain medication as needed. Medicine continuing to correct sodium level. Plan for surgical intervention for tmrw, 04/18/2025 for direct anterior right total hip arthroplasty. Patient to be n.p.o. starting at midnight tonight. We will continue to follow patient during her stay in hospital. 2. Appreciate medical management 3. Pain management -gabapentin; Tylenol with codeine 4. DVT prophylaxis -mechanical 5. GI prophylaxis -senna 6. PT/OT -weightbearing as tolerated with walker 7. Encourage incentive spirometer use 8. Discharge planning -pending Time with Patient: Less than 30
--- NOTE | 2025-04-17 16:37 | P.PN ---
Subjective Progress Note Date: 04/17/25 Hospital Course: Patient is a very pleasant 75-year-old female with a past medical history of hypertension, hyperlipidemia, and osteoarthritis. She is currently admitted under orthopedic surgery team and was scheduled to undergo right total hip arthroplasty 04/15/[address] Lau. However, preoperative labs revealed hyponatremia and a repeat sodium again showing hyponatremia with sodium of 127. Surgery postponed at this time and we were consulted for medical management and treatment of hyponatremia. Hyponatremia has significantly improved with morning sodium 132. Patient is scheduled to undergo right total hip arthroplasty tomorrow. Physical exam: Patient seen and fully evaluated at bedside this morning. She was sitting up in the chair at bedside and reports feeling a bit better today and knowing that her sodium continues to improve. Discussed with patient we will plan to discontinue hydrochlorothiazide upon discharge. Patient currently denies having any pain or complaints at this time, states just looking forward to having surgery completed tomorrow and getting back home. Vital signs reviewed and stable. General: Nontoxic, no distress and appears stated age. Derm: Skin warm and dry, normal coloration for ethnicity. Head: Atraumatic, normocephalic and symmetric. Eyes: EOM's intact, no lid lag, and anicteric sclera Mouth: no lip lesions, mucus membranes moist Cardiovascular: regular rate and rhythm with normal S1S2, no murmur, positive posterior tibial pulses bilaterally, and cap refill < 2 seconds. Lungs: Respirations even, regular, and unlabored on room air. Lungs CTA bilaterally, no rhonchi, no rales, no wheezing, and no accessory muscle usage. Abdominal: soft, nontender to palpation, no guarding, no appreciable organomegaly Ext: ROM intact. No gross muscle atrophy, no edema, no contractures Neuro: Speech clear, face symmetrical and CN II-XII grossly intact with no noted focal neuro deficits Psych: Alert and oriented to person, place, time, and situation. Appropriate and pleasant affect. Assessment and Plan of Care: Hyponatremia, improving with IV fluid hydration -Secondary to daily diuretic use with hydrochlorothiazide. -Hold hydrochlorothiazide and continue gentle IV fluid hydration with 0.9% normal saline at 100 cc/h. -Repeat BMP this evening and again tomorrow morning. Adjustments to IV fluid based upon these results. -TSH normal findings at 1.580. Hypercalcemia - Resolved with IV fluid hydration. Hypochloremia Resolved with IV fluid hydration. Hypertension - Monitor vital signs. Hold hydrochlorothiazide and continue daily medication regimen with amlodipine 2.5 mg daily and valsartan 160 mg twice daily. Hyperlipidemia - Continue daily medication regimen with atorvastatin 20 mg nightly Osteoarthritis Right hip pain -Patient admitted under orthopedic surgery team and is scheduled to undergo right total hip arthroplasty 04/18/2025, discussed with orthopedic surgery PA Data and imaging reviewed: Labs reviewed. Sodium has been trended resulting at 127, 127, 129. 131 and this morning it is 132. CBC showing mild normocytic anemia with hemoglobin of 10.8. Blood glucose was 90. Calcium 9.0. Magnesium 1.9. Vital signs reviewed. Blood pressure 121/73, heart rate 77, respiratory rate 17, temp 98.3 F, and SpO2 of 94% on room air. Thank you for allowing us to participate in the care of this pleasant patient. Do not hesitate to contact us with questions. Someone can be reached from the [facility] hospitalist group all hours of the day at [phone] or via [employer]. Patient was seen independently by Nurse Practitioner. This document was prepared using [employer] dictation software. Please allow for errors in counseling case manager while rare they do occur. Aristeo Cortes NP rendered care for this patient independently, reviewed the findings and plan as documented in the note above and agree with plan. I did not physically speak with or examine the patient on this date. Objective - Vital Signs Vital signs: Vital Signs Temp 98.3 F 04/17/25 07:29 Pulse 77 04/17/25 07:29 Resp 17 04/17/25 07:29 BP 121/73 04/17/25 07:29 Pulse Ox 94 L 04/17/25 07:29 FiO2 Intake & Output 04/16/25 04/17/25 04/17/25 18:59 06:59 18:59 Intake Total 1450 Balance 1450 Intake: Intake, IV Titration 800 Amount Sodium Chloride 0.9% 1, 800 000 ml @ 100 mls/hr IV . Q10H JORGE LUIS Rx#:[id number] Oral 650 Other: Voiding Method Toilet Toilet # Voids 4 - Labs CBC & Chem 7: 04/17/25 03:30 04/17/25 03:30 Labs: Abnormal Lab Results - Last 24 Hours (Table) 04/16/25 04/16/25 Range/Units 03:01 17:45 Sodium 129 L 131 L (135-145) mmol/L Carbon Dioxide 20 L (22-30) mmol/L Glucose 118 H (74-99) mg/dL
[2025-04-18 08:21] LABS: Basophils # (A) 0.05 X 10*3/uL (0.00-0.10); Eosinophils # (A) 0.19 X 10*3/uL (0.04-0.35); Eosinophils % (A) 3.9 %; HCT 33.6 % (37.2-46.3); HGB 10.8 g/dL (12.0-15.0); Lymphocytes # (A) 1.58 X 10*3/uL (0.90-5.00); MCH 28.7 pg (27.0-32.0); MCHC 32.1 g/dL (32.0-37.0); MCV 89.4 FL (80.0-97.0); Mean Platelet Volume 9.1 FL (9.5-12.2); Monocytes # (A) 0.57 X 10*3/uL (0.20-1.00); Monocytes % (A) 11.6 %; NRBC Per 100 WBC 0 X 10*3/uL (0.00-0.01); Neutrophils # (A) 2.51 X 10*3/uL (1.80-7.70); Neutrophils % (A) 50.9 %; Platelet Count 222 X 10*3/uL (140-440); RBC 3.76 X 10*6/uL (4.10-5.20); RDW 13.3 % (11.5-14.5); WBC 4.93 X 10*3/uL (4.50-10.00)
[2025-04-18] MEDS: ONDANSETRON 4 MG/2 ML VIAL IVP STA (08:26)
[2025-04-18] MEDS: DEXAMETHASONE SOD PHOSPHATE 4 MG/ML 1 ML VIAL IVP STA (08:27)
[2025-04-18] MEDS: IV FLUID CONTINUATION 1,000 ML IV ONE ×2 (08:29→12:22)
[2025-04-18] MEDS: MIDAZOLAM 2 MG/2 ML VIAL IVP ONE (08:52)
[2025-04-18] MEDS ORDERED: ROPIVACAINE 5 MG/ML 30 ML VIAL ONE (08:59)
[2025-04-18] MEDS ORDERED: PROPOFOL 10 MG/ML 20 ML VIAL IV ONE (08:59)
[2025-04-18] MEDS ORDERED: SUCCINYLCHOLINE CHLORIDE 200 MG/10 ML VIAL IV ONE (08:59)
[2025-04-18] MEDS ORDERED: MIDAZOLAM 2 MG/2 ML VIAL ONE (08:59)
[2025-04-18] MEDS ORDERED: TRANEXAMIC 1,000 MG/100ML-NACL PREMIX BAG ONE (08:59)
[2025-04-18] MEDS ORDERED: LIDOCAINE 1% INJ 10MG/ML (20 ML MDV) ONE (08:59)
[2025-04-18] MEDS ORDERED: DEXAMETHASONE SOD PHOSPHATE 4 MG/ML 1 ML VIAL ONE (08:59)
[2025-04-18] MEDS ORDERED: fentaNYL (PF) 50 MCG/ML 2 ML AMP ONE (08:59)
[2025-04-18] MEDS: SODIUM CHLORIDE 0.9% 100 ML with ceFAZolin 2,000 MG IV ONE (09:02)
[2025-04-18] MEDS: ceFAZolin 1,000 MG in SODIUM CHLORIDE 0.9% 1,000 ML IRRIGATION ONE (09:34)
[2025-04-18 10:26] LABS: BUN/Creat Ratio 15.25 Ratio (12.00-20.00); Blood Urea Nitrogen 12.2 mg/dL (9.0-27.0); Calcium 8.9 mg/dL (8.7-10.3); Carbon Dioxide 19.8 mmol/L (21.6-31.8); Chloride 107 mmol/L (96-109); Glucose 84 mg/dL (70-110); Magnesium 1.8 mg/dL (1.5-2.4); Potassium 4.3 mmol/L (3.5-5.5); Sodium 137 mmol/L (135-145)
--- NOTE | 2025-04-18 10:35 | P.ANPRN ---
Procedure Note - Anesthesia - Nerve Block Performed Right Luis A Single Time Out Performed: Yes Date of Procedure: 04/18/25 Procedure Start Time: 08:52 Procedure Stop Time: 09:01 Location of Patient: PreOp Indication: Acute Post-Operative Pain, Requested by Surgeon Sedation Type: Sedate with meaningful contact maintained Preparation: Sterile Prep, Sterile Dressing Position: Supine Catheter: None Needle Types: Facet Needle Gauge: 20 Ultrasound used to visualize needle placement: Yes Ultrasound used to observe medication spread: Yes Injectate: 0.5% Ropivacaine (see comment for volume) (30 ml + decadron 4 mg) Blood Aspirated: No Pain Paresthesia on Injection Noted: No Resistance on Injection: Normal Image Stored and Saved: Yes Events: Uneventful and Well Tolerated
[2025-04-18] MEDS ORDERED: HYDROmorphone 0.5 MG/0.5 ML SYRINGE IVP PRN ×2 (10:40)
[2025-04-18] MEDS ORDERED: HYDROcodone/APAP 7.5-325MG 1 EACH TAB PO PRN (10:40)
[2025-04-18] MEDS ORDERED: NALOXONE 0.4 MG/ML 1 ML VIAL IV PRN (10:40)
--- NOTE | 2025-04-18 10:44 | FL ---
EXAMINATION TYPE: FL guidance operating room, XR Hip Limited RT DATE OF EXAM: 04/18/2025 CLINICAL INDICATION: Female, 75 years old with history of M16.11 RIGHT HIP OSTEOARTHRITIS, pain. TECHNIQUE: Fluoroscopy. Limited intraoperative views right hip COMPARISON: None. FINDINGS: Fluoroscopic guidance was provided during right hip replacement procedure performed by Dr. Lau. A total of 19 seconds of fluoroscopic time was utilized during the procedure. TOTAL DAP = 0. 8256 Gycm2. Images acquired show eventual placement of right hip metallic hardware which appears satisfactory in position on frontal projection. IMPRESSION: As Above. [facility], , 04/18/2025 10:42 AM
[2025-04-18] MEDS: HYDROmorphone 0.5 MG/0.5 ML SYRINGE IVP PRN (11:05)
--- NOTE | 2025-04-18 11:08 | P.OP ---
Date of Procedure: 04/18/25 Preoperative Diagnosis: Right hip severe osteoarthrosis Postoperative Diagnosis: Same Procedure(s) Performed: Right total hip arthroplastypress-fitanterior approach Implants: DePuy Corail size 11-125 degree high offset press-fit collared femoral stem, 36+5 cobalt chrome femoral head, 52 mm [place] acetabular shell with neutral polyethylene liner. Anesthesia: GETA Surgeon: Dewayne Lau Flavoring Machine Operator #1: Jevon Zavaleta Estimated Blood Loss (ml): 400 Pathology: none sent Condition: stable Disposition: PACU Indications for Procedure: Patient is a 75-year-old female who presents with progressive right hip pain secondary to osteoarthrosis despite conservative measures. A discussion of the risks and benefits of operative intervention versus continued conservative measures was made with the patient. She opted to proceed with surgery. Operative risks to include infection, neurovascular injury, development of blood clots, fracture, leg length discrepancy, instability, and possible need for subsequent procedures was discussed. Informed consent was obtained. Operative Findings: As below Description of Procedure: The patient was brought to the operating room, and after induction of spinal anesthesia was placed supine on the Krystle table. Positioning was checked with fluoroscopy. The right hip was then prepped and draped in a normal fashion. A 12 cm incision was then made starting 2 fingerbreadths distal and 3 finger breaths posterior to the ASIS in line with the proximal femur. The skin was incised sharply. Subcutaneous tissues were divided sharply. Electrocautery was used for hemostasis. The fascia was split in line with skin incision. The interval between the sartorius and tensor fascia petr was then bluntly developed. The posterior fascia was opened with electrocautery. The lateral circumflex vessels were identified and cauterized prior to sectioning. A retractor was placed along the superior femoral neck as well as the anterior acetabular rim. A wide capsulotomy was performed. The neck cut was then made at a 45 angle to the shaft approximately 1 1/2 cm above the level of the lesser trochanter. The head was extracted. Attention was then paid towards preparing the acetabulum. Anterior and posterior retractors were placed. The remaining capsular labral tissue sharply debrided clearly defining the acetabular margins. I began reaming with a 47 mm reamer taking care to initially medialize then reaming at 45 of abduction and 20 of anteversion. Sequential reaming is performed up to 51 mm. A trial 52 mm acetabular shell was inserted in the same orientation and was fully seated. There was good rim fit and stability. Positioning was checked with fluoroscopy. The final 52 mm acetabular shell was inserted again at 45 of abduction and 20 of anteversion. This was fully seated. There was good rim fit and stability. Again fluoroscopy was used to check the adequacy of placement. A neutral polyethylene liner was gently impacted. Care was taken to avoid any soft tissue interposition. Pulsatile lavage was utilized. Attention was then paid towards preparing the proximal femur. The saddle region was cleared of soft tissue. A canal finder was used to find the femoral canal. Sequential broaching was performed up to size 11 taking care to lateralize proximally. A calcar mill was used to fashion the medial calcar. There was good rotational stability. A 125 degree high offset neck along with a 36 mm +5 head was placed. The hip was gently reduced. Fluoroscopy was used to check the adequacy of positioning along with leg lengths. I felt both were good. The hip was gently dislocated. The trial components were removed. The final size 11 collared 125 degree high offset collared press-fit femoral stem was inserted parallel to the posterior cortex. This was fully seated and there was good rotational stability. A 36 mm +5 cobalt chrome femoral head was placed. This was gently impacted. The hip was then gently reduced. Final fluoroscopic view showed adequate placement implant along with evangelical of leg length. Stability was checked with 80 of external rotation and 60 of extension of the right hip. The wound was irrigated with sterile lavage. The fascia was closed with running 0 Vicryl suture. There was minimal drainage therefore a deep drain was not placed. The second dose of IV TXA was given. The subcutaneous tissues were reapproximated interrupted 2-0 Vicryl sutures. The skin was reapproximated with 3-0 subcuticular strata fix suture. Skin tape and adhesive was applied. A sterile dressing was applied. The patient was then awoken from sedation and transferred to recovery room in good condition. Blood loss was estimated at 400 mL. No complications were incurred. Sponge and needle counts were correct at the end of the case. Jevon MCPHERSON assisted during the major components is case to include exposure, bone resection, implantation, and closure.
--- NOTE | 2025-04-18 11:58 | XR ---
EXAMINATION TYPE: XR Hip Limited RT DATE OF EXAM: 04/18/2025 CLINICAL INDICATION: Female, 75 years old with history of Status post hip surgery, assess surgical al ignment, hip pain and osteoarthritis. pain TECHNIQUE: Single AP portable view of right hip is obtained immediately postoperatively. COMPARISON: None. FINDINGS: Metallic hardware from right hip arthroplasty is seen and appears satisfactory in alignment and position. There is evidence of recent surgery with subcutaneous gas noted surrounding prosthesi s. IMPRESSION: Metallic hardware from right hip arthroplasty is satisfactory in position. [facility], , 04/18/2025 11:56 AM
--- NOTE | 2025-04-18 13:19 | P.PN ---
Subjective Progress Note Date: 04/18/25 Hospital Course: Patient is a very pleasant 75-year-old female with a past medical history of hypertension, hyperlipidemia, and osteoarthritis. She is currently admitted under orthopedic surgery team and was scheduled to undergo right total hip arthroplasty 04/15/[address] Lau. However, preoperative labs revealed hyponatremia and a repeat sodium again showing hyponatremia with sodium of 127. Surgery postponed at this time and we were consulted for medical management and treatment of hyponatremia. Hyponatremia slowly improved each day and resolving this morning with sodium 137.. Patient is scheduled to undergo right total hip arthroplasty tomorrow. Physical exam: Patient seen and fully evaluated at bedside upon returning to room 476 from completion of right total hip arthroplasty.. She is resting in bed visiting with her at bedside. Patient currently reports postoperative pain is currently controlled states it was pretty severe after surgery but states since pain medication was administered it has resolved. She denies having any postoperative nausea or vomiting. She is tolerating clear fluid intake. She has not yet gotten out of bed since completion of surgery and has not yet urinated. Patient denies any dizziness, lightheadedness, headache, chest pain, palpitations, shortness of breath, or experiencing any numbness in her extremities. Vital signs reviewed and stable. General: Nontoxic, no distress and appears stated age. Derm: Skin warm and dry, normal coloration for ethnicity. Head: Atraumatic, normocephalic and symmetric. Eyes: EOM's intact, no lid lag, and anicteric sclera Mouth: no lip lesions, mucus membranes moist Cardiovascular: regular rate and rhythm with normal S1S2, no murmur, positive posterior tibial pulses bilaterally, and cap refill < 2 seconds. Lungs: Respirations even, regular, and unlabored on room air. Lungs CTA bilaterally, no rhonchi, no rales, no wheezing, and no accessory muscle usage. Abdominal: soft, nontender to palpation, no guarding, no appreciable organomegaly Ext: ROM intact. No gross muscle atrophy, no edema, no contractures Neuro: Speech clear, face symmetrical and CN II-XII grossly intact with no noted focal neuro deficits Psych: Alert and oriented to person, place, time, and situation. Appropriate and pleasant affect. Assessment and Plan of Care: Status post right total hip arthroplasty Management per primary admitting orthopedic surgery team including DVT prophylaxis, pain management, wound/dressing management, weightbearing, and PT/OT. Patient currently on DVT prophylaxis with Xarelto 10 mg daily. Hyponatremia, resolved after IV fluid hydration -Secondary to daily diuretic use with hydrochlorothiazide. Resolved after IV fluid hydration. - Continue to hold hydrochlorothiazide, IV fluids discontinued at this time as sodium is stable and patient tolerating oral intake. Hypercalcemia - Resolved with IV fluid hydration. Hypochloremia Resolved with IV fluid hydration. Hypertension - Monitor vital signs. Hold hydrochlorothiazide and continue daily medication regimen with amlodipine 2.5 mg daily and valsartan 160 mg twice daily. Hyperlipidemia - Continue daily medication regimen with atorvastatin 20 mg nightly Data and imaging reviewed: Labs reviewed. Sodium has been trended resulting at 127, 127, 129. 131, 132 and this morning hyponatremia resolved with sodium of 137. CBC showing mild normocytic anemia with hemoglobin of 10.8. Blood glucose was 84 Calcium 8.9. Magnesium 1.8. Vital signs reviewed. Blood pressure 136/78, heart rate 72, respiratory rate 16, and SpO2 of 97% on room air. Morning temp is 97.0 F. Thank you for allowing us to participate in the care of this pleasant patient. Do not hesitate to contact us with questions. Someone can be reached from the [facility] hospitalist group all hours of the day at [phone] or via [employer]. Patient was seen independently by Nurse Practitioner. This document was prepared using [employer] dictation software. Please allow for errors in brim pouncer while rare they do occur. Aristeo Cortes NP rendered care for this patient independently, reviewed the findings and plan as documented in the note above and agree with plan. I did not physically speak with or examine the patient on this date. Objective - Vital Signs Vital signs: Vital Signs Temp 97.5 F L 04/18/25 08:07 Pulse 77 04/18/25 08:07 Resp 14 04/18/25 08:07 BP 154/81 04/18/25 08:07 Pulse Ox 96 04/18/25 08:07 FiO2 Intake & Output 04/17/25 04/18/25 04/18/25 18:59 06:59 18:59 Intake Total 1200 Balance 1200 Intake: Intake, IV Titration 1200 Amount Sodium Chloride 0.9% 1, 1200 000 ml @ 100 mls/hr IV . Q10H JORGE LUIS Rx#:[id number] Other: # Voids 3 - Labs CBC & Chem 7: 04/18/25 05:48 04/18/25 05:48 Labs: Abnormal Lab Results - Last 24 Hours (Table) 04/17/25 04/17/25 04/18/25 Range/Units 03:30 03:30 05:48 RBC 3.76 L 3.76 L (4.10-5.20) X 10*6/uL Hgb 10.8 L 10.8 L (12.0-15.0) g/dL Hct 33.3 L 33.6 L (37.2-46.3) % MPV 9.1 L 9.1 L (9.5-12.2) FL Sodium 132 L (135-145) mmol/L Carbon Dioxide 18.2 L (21.6-31.8) mmol/L
[2025-04-18] MEDS: HYDROcodone/APAP 5-325MG 1 EACH TAB PO PRN (14:56)
[2025-04-18] MEDS: ceFAZolin 2 GM in DEXTROSE 5% IN WATER 50 ML IVPB SCH (15:23)
[2025-04-19 07:30] VITALS: BP 152/77; PULSE 90; RESP 15; TEMP 98.4
[2025-04-19] MEDS: RIVAROXABAN 10 MG TAB PO SCH (08:32)
[2025-04-19 09:15] LABS: Basophils # (A) 0.02 X 10*3/uL (0.00-0.10); Basophils % (A) 0.2 %; Eosinophils # (A) 0.01 X 10*3/uL (0.04-0.35); Eosinophils % (A) 0.1 %; HCT 29.8 % (37.2-46.3); HGB 9.5 g/dL (12.0-15.0); Lymphocytes # (A) 1.72 X 10*3/uL (0.90-5.00); Lymphocytes % (A) 16.5 %; MCH 28.4 pg (27.0-32.0); MCHC 31.9 g/dL (32.0-37.0); Mean Platelet Volume 9.5 FL (9.5-12.2); Monocytes # (A) 1.37 X 10*3/uL (0.20-1.00); Monocytes % (A) 13.2 %; NRBC Per 100 WBC 0 X 10*3/uL (0.00-0.01); Neutrophils % (A) 69.2 %; Platelet Count 230 X 10*3/uL (140-440); RBC 3.35 X 10*6/uL (4.10-5.20); RDW 13.2 % (11.5-14.5)
[2025-04-19 09:23] LABS: Magnesium 1.9 mg/dL (1.5-2.4)
[2025-04-19 09:56] LABS: BUN/Creat Ratio 18.33 Ratio (12.00-20.00); Blood Urea Nitrogen 16.5 mg/dL (9.0-27.0); Carbon Dioxide 20.8 mmol/L (21.6-31.8); Chloride 106 mmol/L (96-109); Glucose 112 mg/dL (70-110); Potassium 5.5 mmol/L (3.5-5.5); Sodium 134 mmol/L (135-145)
--- NOTE | 2025-04-19 11:41 | P.PN ---
Subjective Progress Note Date: 04/19/25 Principal diagnosis: Status post direct anterior right total hip arthroplasty Patient evaluated at bedside, she is resting comfortably sitting up in her chair. Patient is very eager to be going home. She is walking with no significant discomfort and utilizing a walker. She is urinated since surgery with no issue. She denies headaches, lightheadedness, chest pain or shortness of breath Objective - Vital Signs Vital signs: Vital Signs Temp 98.4 F 04/19/25 07:29 Pulse 90 04/19/25 07:29 Resp 15 04/19/25 07:29 BP 152/77 04/19/25 07:29 Pulse Ox 98 04/19/25 07:29 FiO2 Intake & Output 04/18/25 04/19/25 04/19/25 18:59 06:59 18:59 Intake Total 1451 500 Output Total 400 Balance 1051 500 Intake: IV 1101 Oral 350 500 Output: Estimated Blood Loss 400 Other: Voiding Method Toilet Toilet # Voids 1 2 - Exam Right lower extremity: Incision is clean, dry, and intact. The exofin fusion tape is in good condition. There is minimal soft tissue swelling and ecchymosis surrounding the medial and lateral aspects of the incision. Calf is soft, no tenderness with palpation. Plantar flexion, dorsiflexion, EHL, FHL are intact. Sensory exam to light touch throughout the extremity is intact, dorsal pedis pulses 2+. - Labs CBC & Chem 7: 04/19/25 05:17 04/19/25 05:17 Labs: Abnormal Lab Results - Last 24 Hours (Table) 04/19/25 04/19/25 Range/Units 05:17 05:17 WBC 10.40 H (4.50-10.00) X 10*3/uL RBC 3.35 L (4.10-5.20) X 10*6/uL Hgb 9.5 L (12.0-15.0) g/dL Hct 29.8 L (37.2-46.3) % MCHC 31.9 L (32.0-37.0) g/dL Immature Gran # 0.08 H (0.00-0.04) X 10*3/uL Monocytes # 1.37 H (0.20-1.00) X 10*3/uL Eosinophils # 0.01 L (0.04-0.35) X 10*3/uL Sodium 134 L (135-145) mmol/L Carbon Dioxide 20.8 L (21.6-31.8) mmol/L Glucose 112 H (70-110) mg/dL Assessment and Plan Assessment: Postoperative day #1 status post direct anterior right total hip arthroplasty Plan: Pain control, plan for discharge home on oral medication GI DVT prophylaxis, patient does have some leftover blood thinner from her surgeon in December she will finish with, we will then transition to aspirin 325 mg daily Wound care instructions discussed, this to include bandage removal and showering instructions Home PT/nursing after discharge Medical recommendations appreciated Discharge planning: Patient stable for discharge home today Time with Patient: Less than 30
--- NOTE | 2025-04-19 11:46 | P.DS ---
Providers Date of admission: 04/15/25 10:27 Expected date of discharge: 04/19/25 Attending physician: Dewayne Lau Consults: 04/15/25 12:12 Consult Physician Urgent Consulting Provider: Sharron Gutierrez Consult Reason/Comments: hyponatremia; hip surgery cancelled Do you want consulting provider notified?: Yes Primary care physician: Wes Chu Hospital Course: Date of admission: 04/15/2025 Date of discharge: 04/19/2025 Admission diagnosis: Status post direct anterior right total hip arthroplasty, hyponatremia Discharge diagnosis: Same Attending physician: Dr. Lau Surgical procedures: Direct anterior right total hip arthroplasty Brief history: Patient is a 75-year-old female with a history of progressive primary right hip osteoarthritis. At this point patient has failed conservative treatment measures and has opted to proceed with a elective direct anterior right total hip arthroplasty. Hospital course: Details of patient's surgery can be found in operative report. Patient tolerated the procedure well and was subsequently transported to orthopedic floor. Patient's orthopeidc and medical care was provided daily. Patient had daily laboratory tests performed for evaluation of overall blood counts. Patient had daily physical therapy to include strengthening range of motion as well as education with walker ambulation. Patient was treated with Xarelto for their postoperative DVT prophylaxis during their inpatient stay. Patient was noted to have a relatively uneventful postoperative course. On the day of the initial surgery was noted that the patient had significant hyponatremia, at that time surgery was rescheduled for 04/18/2025. Reported satisfactory pain control with oral pain medications by postoperative day 1. Patient showed satisfactory progress with physical therapy. Patient moved steadily through the program and had no difficulty meeting the goals by postoperative day 1. Given patient's otherwise satisfactory course and having met physical therapy goals, plan is to discharge patient home on postoperative day 1. Discharge condition/disposition: Patient will be discharged home in stable condition. Discharge medications: Instructions are given on resumption of patient's normal daily medications per primary care recommendation, in addition patient will be prescribed Cowdrey, senna S, aspirin 325 mg. Discharge instructions: 1. Wound care and infection precautions, keep incision dry and covered while showering, no lotions, creams, moisturizers. No soaking, tubs, pools, hottubs. Do not scrub over the incision. 2. Weight-bear as tolerated with walker / cane until follow-up. 3. Ice and elevate when necessary. Do not exceed 20 minutes per hour with ice pack. 4. Utilize compression sleeve until seen at first follow up appointment. 5. Visiting nursing care. 6. Home physical therapy. 7. Pain meds and anticoagulants per prescription. 8. Pain medication has potential to cause constipation. Increase oral fluid and fiber intake. Contact primary care provider if you have not had a bowel movement within 48 hours after discharge 9. No anti-inflammatory medication until discussed at first post operative visit, this including Motrin, Aleve, Mobic, Diclofenac. 10. Follow up in office at 2 weeks postop with Dimitris Baez PA-C/Jevon Urbina 11. Follow up with your primary care doctor 7-10 days after discharge. 12. Contact [facility] with any questions, . Procedures: Direct anterior right total hip arthroplasty Patient Condition at Discharge: Good Plan - Discharge Summary Discharge Rx Participant: Yes New Discharge Prescriptions: New Sennosides/Docusate Sodium [Senna-S 8.6-50 mg Tablet] 2 each PO DAILY PRN #30 tablet PRN Reason: Constipation Aspirin 325 mg PO DAILY #30 tab HYDROcodone/APAP 5-325MG [Cowdrey 5-325] 1 tab PO Q6HR PRN #28 tab PRN Reason: Pain No Action Cholecalciferol [Vitamin D3 (25 Mcg = 1000 Iu)] 1,000 unit PO DAILY Atorvastatin [Lipitor] 20 mg PO HS Super Antwan (Calcium Supplement) 1 tab PO DAILY Perdido-3 Fatty Acids [Perdido-3] 1 dose PO DAILY Famotidine [Pepcid AC] 10 mg PO DIRECTED PRN PRN Reason: Heartburn hydroCHLOROthiazide 25 mg PO DAILY amLODIPine [Norvasc] 2.5 mg PO DAILY Valsartan 160 mg PO BID Gabapentin 300 mg PO HS #21 cap Discharge Medication List Atorvastatin [Lipitor] 20 mg PO HS 11/04/19 [History] Cholecalciferol [Vitamin D3 (25 Mcg = 1000 Iu)] 1,000 unit PO DAILY 11/04/19 [History] Famotidine [Pepcid AC] 10 mg PO DIRECTED PRN 11/04/19 [History] Perdido-3 Fatty Acids [Perdido-3] 1 dose PO DAILY 11/04/19 [History] Super Antwan (Calcium Supplement) 1 tab PO DAILY 11/04/19 [History] hydroCHLOROthiazide 25 mg PO DAILY 10/13/23 [History] Valsartan 160 mg PO BID 12/11/24 [History] amLODIPine [Norvasc] 2.5 mg PO DAILY 12/11/24 [History] Gabapentin 300 mg PO HS #21 cap 12/19/24 [Rx] Aspirin 325 mg PO DAILY #30 tab 04/19/25 [Rx] HYDROcodone/APAP 5-325MG [Cowdrey 5-325] 1 tab PO Q6HR PRN #28 tab 04/19/25 [Rx] Sennosides/Docusate Sodium [Senna-S 8.6-50 mg Tablet] 2 each PO DAILY PRN #30 tablet 04/19/25 [Rx] Follow up Appointment(s)/Referral(s): Jevon Zavaleta PAC [PHYSICIAN HOG SCRAPER] - 2 Weeks [facility], [NON-STAFF] - 1 Week Patient Instructions/Handouts: Anterior Hip Replacement (GEN) Activity/Diet/Wound Care/Special Instructions: Orthopedic Discharge Instructions: 1. Wound care and infection precautions, keep incision dry and covered while showering, no lotions, creams, moisturizers. No soaking, pools, hot tubs. Do not scrub over incision. 2. Weight-bear as tolerated with walker / cane until follow-up. 3. Ice and elevate when necessary. Do not exceed 20 minutes per hour with ice pack. 4. Utilize compression sleeve until seen at first follow up appointment. 5. Pain meds and anticoagulants per prescription. 6. Pain medication has potential to cause constipation. Increase oral fluid and fiber intake. Contact primary care provider if you have not had a bowel movement within 48 hours after discharge. 7. No anti-inflammatory medication until discussed at first post operative visit, this including Motrin, Aleve, Mobic, Diclofenac. 8. Follow up in office at 2 weeks postop with Dimitris Baez PA-C / Jevon Zavaleta PA-C 9. Follow up with your primary care doctor 7-10 days after discharge. 10. Contact [facility] with any questions, . Keep incision clean, dry, intact. While showering, cover fusion tape with Saran wrap. Keep fusion tape on until follow-up appoint in office in 2 weeks Discharge Disposition: HOME WITH HOME HEALTH SERVICES
--- NOTE | 2025-04-19 16:22 | P.PN ---
Subjective Progress Note Date: 04/19/25 Hospital Course: Patient is a very pleasant 75-year-old female with a past medical history of hypertension, hyperlipidemia, and osteoarthritis. She is currently admitted under orthopedic surgery team and was scheduled to undergo right total hip arthroplasty 04/15/[address] Lau. However, preoperative labs revealed hyponatremia and a repeat sodium again showing hyponatremia with sodium of 127. Surgery postponed at this time and we were consulted for medical management and treatment of hyponatremia. Hyponatremia slowly improved each day and resolving this morning with sodium 137.. Patient is scheduled to undergo right total hip arthroplasty tomorrow. Physical exam: Patient seen and fully evaluated at bedside this morning. She is postoperative day 1. She reports that she is doing well. She reports moderate pain as to be expected but states controlled with current pain medication regimen. Patient reports she is urinating without difficulties and denies having any postoperative nausea or vomiting. Patient does report having a bowel movement this morning. Vital signs reviewed and stable. General: Nontoxic, no distress and appears stated age. Derm: Skin warm and dry, normal coloration for ethnicity. Head: Atraumatic, normocephalic and symmetric. Eyes: EOM's intact, no lid lag, and anicteric sclera Mouth: no lip lesions, mucus membranes moist Cardiovascular: regular rate and rhythm with normal S1S2, no murmur, positive posterior tibial pulses bilaterally, and cap refill < 2 seconds. Lungs: Respirations even, regular, and unlabored on room air. Lungs CTA bilaterally, no rhonchi, no rales, no wheezing, and no accessory muscle usage. Abdominal: soft, nontender to palpation, no guarding, no appreciable organomegaly Ext: ROM intact. No gross muscle atrophy, no edema, no contractures Neuro: Speech clear, face symmetrical and CN II-XII grossly intact with no noted focal neuro deficits Psych: Alert and oriented to person, place, time, and situation. Appropriate and pleasant affect. Assessment and Plan of Care: Status post right total hip arthroplasty Management per primary admitting orthopedic surgery team including DVT prophylaxis, pain management, wound/dressing management, weightbearing, and PT/OT. Patient currently on DVT prophylaxis with Xarelto 10 mg daily. Hyponatremia, resolved after IV fluid hydration -Secondary to daily diuretic use with hydrochlorothiazide. Resolved after IV fluid hydration. - Continue to hold hydrochlorothiazide, IV fluids discontinued at this time as sodium is stable and patient tolerating oral intake. Hypercalcemia - Resolved with IV fluid hydration. Hypochloremia Resolved with IV fluid hydration. Hypertension - Monitor vital signs. Hold hydrochlorothiazide and continue daily medication regimen with amlodipine 2.5 mg daily and valsartan 160 mg twice daily. Hyperlipidemia - Continue daily medication regimen with atorvastatin 20 mg nightly Data and imaging reviewed: Postoperative labs reviewed. CBC showing mild leukocytosis with WBC count of 10.4 and acute postoperative blood loss anemia with hemoglobin of 9.5 with preoperative hemoglobin of 10.8. BMP showing sodium 134, bicarb 20.8, and blood glucose of 112. Magnesium was normal findings at 1.9. Vital signs reviewed. Blood pressure 152/77, heart rate 90, respiratory rate 15, temp 98.4 F, and SpO2 of 98% on room air. Discussed with patient and patient's at bedside recommending discontinuation of hydrochlorothiazide daily, patient instructed she may take once daily as needed for elevated blood pressure and/or lower extremity edema. Patient is otherwise medically optimized for discharge once cleared by primary admitting orthopedic surgery team. Discussed discharge recommendations of hydrochlorothiazide with orthopedic surgery PA. Thank you for allowing us to participate in the care of this pleasant patient. Do not hesitate to contact us with questions. Someone can be reached from the [facility] hospitalist group all hours of the day at [phone] or via [employer]. Patient was seen independently by Nurse Practitioner. This document was prepared using [employer] dictation software. Please allow for errors in assignment desk editor while rare they do occur. Aristeo Cortes NP rendered care for this patient independently, reviewed the findings and plan as documented in the note above and agree with plan. I did not physically speak with or examine the patient on this date. Objective - Vital Signs Vital signs: Vital Signs Temp 98.4 F 04/19/25 07:29 Pulse 90 04/19/25 07:29 Resp 15 04/19/25 07:29 BP 152/77 04/19/25 07:29 Pulse Ox 98 04/19/25 07:29 FiO2 Intake & Output 04/18/25 04/19/25 04/19/25 18:59 06:59 18:59 Intake Total 1451 500 Output Total 400 Balance 1051 500 Intake: IV 1101 Oral 350 500 Output: Estimated Blood Loss 400 Other: Voiding Method Toilet Toilet # Voids 1 2 - Labs CBC & Chem 7: 04/19/25 05:17 04/19/25 05:17 Labs: Abnormal Lab Results - Last 24 Hours (Table) 04/18/25 04/19/25 Range/Units 05:48 05:17 WBC 10.40 H (4.50-10.00) X 10*3/uL RBC 3.35 L (4.10-5.20) X 10*6/uL Hgb 9.5 L (12.0-15.0) g/dL Hct 29.8 L (37.2-46.3) % MCHC 31.9 L (32.0-37.0) g/dL Immature Gran # 0.08 H (0.00-0.04) X 10*3/uL Monocytes # 1.37 H (0.20-1.00) X 10*3/uL Eosinophils # 0.01 L (0.04-0.35) X 10*3/uL Carbon Dioxide 19.8 L (21.6-31.8) mmol/L
== END 2025-04-19 12:50 | disposition home health service (06) | DRG 470 ==
LOC: OR 10:26 → 4SSUR 10:27
PROVIDERS: ADMIT Orthopaedic Surgery; ATTEND Orthopaedic Surgery
PROC: 0SR90JA Replacement of Right Hip Joint with Synthetic Substitute, Uncemented, Open Approach (ICD-10-PCS; principal; 2025-04-18 08:45)
DX: M16.11 Unilateral primary osteoarthritis, right hip (principal); D62 Acute posthemorrhagic anemia; E87.1 Hypo-osmolality and hyponatremia; I10 Essential (primary) hypertension; E78.5 Hyperlipidemia, unspecified; Z53.8 Procedure and treatment not carried out for other reasons; E83.52 Hypercalcemia; E87.8 Other disorders of electrolyte and fluid balance, not elsewhere classified; Z96.0 Presence of urogenital implants; Z98.1 Arthrodesis status; Z79.899 Other long term (current) drug therapy
CPT/HCPCS: 64473; 73501; 80048; 83735; 84443; 85025; 85027